=== PATIENT | female | born 1975 | race Caucasian/White ===

== ENCOUNTER 2019-04-10 08:27 | Observation (INO) ==
[2019-04-10] MEDS ORDERED: Ketorolac 15 MG/ML VIAL IVP ONE (08:42)
[2019-04-10] MEDS ORDERED: Ondansetron 4 MG/2 ML VIAL IVP ONE ×2 (08:42→20:55)
--- NOTE | 2019-04-10 08:46 | Emergency Department Note ---
Disposition Clinical Impression: Kidney stone Disposition: Admitted As Inpatient Time of Disposition: 10:21 General Adult HPI - General Chief complaint: ED Back Pain/Injury Stated complaint: kidney stone Time Seen by Provider: 04/10/19 08:29 Source: patient Limitations: no limitations Nursing Notes Reviewed: Yes Vital Signs Reviewed: Yes - History of Present Illness HPI Narrative: 44 year old female presents with the left flank pain. Patient stated it was intermittent left flank pain for 3 days. She complained of worsening pain this morning. Associated with nausea and vomited once. Patient felt cold. No fever. No difficulty urinating. No history of kidney stone. Last bowel movement was yesterday. History of cholecystectomy and appendectomy. Onset (ago): day(s) (3) Location: back, left Radiation: non-radiation Pain Scale: 8 - Related Data Previous Rx's Medication Instructions Recorded Ibuprofen [Motrin] 600 mg PO Q6HR PRN #60 tab 09/20/17 Allergies Allergy/AdvReac Type Severity Reaction Status Date / Time No Known Allergies Allergy Verified 09/20/17 10:59 Constitutional: Reports: chills. Denies: fever Eyes: Denies: eye pain ENT ED: Denies: ear pain Cardiovascular: Denies: chest pain Respiratory: Denies: cough Gastrointestinal: Reports: nausea, vomiting. Denies: abdominal pain Genitourinary: Denies: urgency, dysuria, frequency Musculoskeletal: Reports: back pain Integumentary: Denies: rash Neurological: Denies: headache Psychiatric: Denies: anxiety Endocrine: Denies: fatigue Hematological/Lymphatic: Denies: easy bleeding Allergic/Immunologic: Denies: facial swelling Past Medical History - Past Medical History Medical history: Reports: other Surgical history: Reports: appendectomy, cholecystectomy Psychiatric history: Reports: no psych history - Social History Smoking Status: Current every day smoker Smokeless Tobacco Status: No Alcohol use: Reports: none Drug use: Reports: none Physical Exam - General Limitations: no limitations General appearance: alert - Head Head exam: atraumatic - Eye Eye exam: Present: normal appearance - ENT ENT exam: normal exam - Neck Neck exam: Present: normal inspection - Chest Chest inspection: Present: normal inspection - Respiratory Respiratory exam: Present: normal lung sounds bilaterally - Cardiovascular Cardiovascular exam: Present: regular rate - Abdominal Exam Abdominal exam: Present: soft, Non-Tender - Extremities Exam Extremities exam: Present: normal inspection, full ROM. Absent: tenderness - Back Exam Back exam: Present: normal inspection, CVA tenderness (L) - Neurological Exam Neurological exam: Present: alert, oriented X3 - Psychiatric Psychiatric exam: Present: normal affect, normal mood - Skin Skin exam: Present: warm, intact Course Vital Signs Temperature 97.9 F 04/10/19 08:30 Pulse Rate 91 04/10/19 08:30 Respiratory Rate 18 04/10/19 08:30 Blood Pressure 119/75 04/10/19 08:30 O2 Sat by Pulse Oximetry 97 04/10/19 08:30 Temperature 97.9 F 04/10/19 08:30 Pulse Rate 73 04/10/19 10:54 Respiratory Rate 16 04/10/19 10:54 Blood Pressure 112/68 04/10/19 10:54 O2 Sat by Pulse Oximetry 99 04/10/19 10:54 Oxygen Delivery Oxygen Delivery Room Air Medical Decision Making - MDM Narrative Medical decision making narrative: 44 year old female presents with left flank pain for three days and got worse today. Associate with nausea and vomiting. No chills and fever. Physical exam: Afebrile, nontoxic looking, abdomen soft no tender to palpation, left CVA tender to percussion. Labs are remarkable, abdomen CT indicated a 11.3 cm kidney stone in left renal pelvis. Pt is given one dose of Toradol and Zofran in ER. Spoke with Urologist Dr. John. He suggested to admit pt to medicine with NPO. He will schedule OP for patient. Spoke with Hospitalist Dr. Peña, pt is accepted. Dr. Cleaning has seen the patient and agrees the above plan. - Lab Data Lab results reviewed: Yes I reviewed the patient's lab results. Result diagrams: 04/10/19 08:49 04/10/19 08:49 Lab Results 04/10/19 04/10/19 04/10/19 Range/Units 08:49 08:49 08:49 WBC 11.0 (4.3-11.1) K/mcL RBC 5.33 H (3.82-4.97) M/mcL Hgb 16.1 H (11.5-15.4) g/dL Hct 47.7 H (35.3-44.9) % MCV 89.5 (83.0-100.0) fL MCH 30.2 (28.0-33.3) pg MCHC 33.8 (31.6-35.5) g/dL RDW 13.8 (11.5-14.5) % Plt Count 248 (140-400) K/mcL MPV 10.3 (9.4-12.4) fL Immature Gran % 0.5 (0-4) % Seg Neutrophils % 78.6 % Lymphocytes % 14.7 % Monocytes % 4.2 % Eosinophils % 1.5 % Basophils % 0.5 % Neutrophils # 8.6 (1.6-8.9) K/mcL Lymphocytes # 1.6 (0.6-4.6) K/mcL Monocytes # 0.5 (0.0-1.3) K/mcL Eosinophils # 0.2 (0.0-0.6) K/mcL Basophils # 0.1 (0.0-0.2) K/mcL Sodium 137 (136-145) mEq/L Potassium 4.4 (3.5-5.1) mEq/L Chloride 104 (98-107) mEq/L Carbon Dioxide 24 (23-29) mEq/L BUN 18 (6-20) mg/dL Creatinine 0.74 (0.60-1.20) mg/dL Est GFR ( Amer) > 60 (> 60) Est GFR (Non-Af Amer) > 60 (> 60) BUN/Creatinine Ratio 24 (6-26) Glucose 117 H (70-105) mg/dL Calculated Osmolality 287 (280-300) Lactic Acid (0.5-2.2) mmol/L Calcium 9.7 (8.6-10.3) mg/dL Ur Specimen Adequacy Urine Color (Yellow) Urine Clarity (Clear) Urine pH (5.0-8.0) pH Units Ur Specific [place] (1.010-1.025) Urine Protein (Neg-Trace) mg/dL Urine Glucose (UA) (Normal) mg/dL Urine Ketones (Negative) mg/dL Urine Blood (Negative) Urine Nitrite (Negative) Urine Bilirubin (Negative) Urine Urobilinogen (Normal) mg/dL Ur Leukocyte Esterase (Negative) Urine Microscopic RBC (0-3) per hpf Urine Microscopic WBC (0-3) per hpf Ur Squamous Epith Cells (None-Few) per lpf Urine Bacteria (None-Few) per hpf Hyaline Casts (None-Few) per lpf Urine Mucus (Few) Ur Culture Indicated? (NO) Specimen Rejected Hemolyzed 04/10/19 04/10/19 Range/Units 08:53 09:36 WBC (4.3-11.1) K/mcL RBC (3.82-4.97) M/mcL Hgb (11.5-15.4) g/dL Hct (35.3-44.9) % MCV (83.0-100.0) fL MCH (28.0-33.3) pg MCHC (31.6-35.5) g/dL RDW (11.5-14.5) % Plt Count (140-400) K/mcL MPV (9.4-12.4) fL Immature Gran % (0-4) % Seg Neutrophils % % Lymphocytes % % Monocytes % % Eosinophils % % Basophils % % Neutrophils # (1.6-8.9) K/mcL Lymphocytes # (0.6-4.6) K/mcL Monocytes # (0.0-1.3) K/mcL Eosinophils # (0.0-0.6) K/mcL Basophils # (0.0-0.2) K/mcL Sodium (136-145) mEq/L Potassium (3.5-5.1) mEq/L Chloride (98-107) mEq/L Carbon Dioxide (23-29) mEq/L BUN (6-20) mg/dL Creatinine (0.60-1.20) mg/dL Est GFR ( Amer) (> 60) Est GFR (Non-Af Amer) (> 60) BUN/Creatinine Ratio (6-26) Glucose (70-105) mg/dL Calculated Osmolality (280-300) Lactic Acid 0.4 L (0.5-2.2) mmol/L Calcium (8.6-10.3) mg/dL Ur Specimen Adequacy See below A Urine Color Yellow (Yellow) Urine Clarity Clear (Clear) Urine pH 5.5 (5.0-8.0) pH Units Ur Specific [place] 1.029 H (1.010-1.025) Urine Protein 100 H (Neg-Trace) mg/dL Urine Glucose (UA) Normal (Normal) mg/dL Urine Ketones Negative (Negative) mg/dL Urine Blood Large H (Negative) Urine Nitrite Negative (Negative) Urine Bilirubin Negative (Negative) Urine Urobilinogen Normal (Normal) mg/dL Ur Leukocyte Esterase Negative (Negative) Urine Microscopic RBC 50-100 H (0-3) per hpf Urine Microscopic WBC 5-15 H (0-3) per hpf Ur Squamous Epith Cells Many H (None-Few) per lpf Urine Bacteria Few (None-Few) per hpf Hyaline Casts None Seen (None-Few) per lpf Urine Mucus Few (Few) Ur Culture Indicated? YES A (NO) Specimen Rejected - Radiology Data Radiology results reviewed: Yes I reviewed the patient's radiology results. HISTORY: ORDERING SYSTEM PROVIDED HISTORY: left flank pain FINDINGS: Lower Chest: Lung bases clear Organs: 1.3 x 1.0 cm stone in the left renal pelvis. No hydronephrosis. Stranding of the peripelvic fat. No ureteral stone or hydroureter. Remaining solid organs have an unremarkable noncontrast appearance. Gallbladder surgically absent GI/Bowel: No gastrointestinal abnormality demonstrated. Appendix surgically absent Pelvis: Reproductive organs within normal limits. T-shaped IUD appears in good position. Urinary bladder unremarkable Peritoneum/Retroperitoneum: Aorta unremarkable. No ascites or pneumoperitoneum Bones/Soft Tissues: No acute bony abnormality. Degenerative disc disease L5-S1 CT/CT abd pelvis wo no iv no oral IMPRESSION: 1.3 x 1.0 cm nonobstructing stone in the left renal pelvis. The presence of peripelvic fat stranding may indicate the presence of pyelitis D/ / Hernandez Capps MD / Hernandez Capps MD Interpreting Provider: Hernandez Capps MD
[2019-04-10 09:02] LABS: Basophils # 0.1 K/mcL (0.0-0.2); Basophils % 0.5 %; Eosinophils # 0.2 K/mcL (0.0-0.6); Eosinophils % 1.5 %; Hematocrit 47.7 % (35.3-44.9); Hemoglobin 16.1 g/dL (11.5-15.4); Immature Granulocytes % 0.5 % (0-4); Lymphocytes # 1.6 K/mcL (0.6-4.6); Lymphocytes % 14.7 %; Mean Corpuscular HGB Conc 33.8 g/dL (31.6-35.5); Mean Corpuscular Hemoglobin 30.2 pg (28.0-33.3); Mean Corpuscular Volume 89.5 fL (83.0-100.0); Mean Platelet Volume 10.3 fL (9.4-12.4); Monocytes # 0.5 K/mcL (0.0-1.3); Monocytes % 4.2 %; Neutrophils # 8.6 K/mcL (1.6-8.9); Platelet Count 248 K/mcL (140-400); Red Blood Count 5.33 M/mcL (3.82-4.97); Red Cell Distribution Width 13.8 % (11.5-14.5); Segmented Neutrophils % 78.6 %
[2019-04-10 09:04] LABS: Bilirubin,Urine Negative (Negative); Blood,Urine Large (Negative); Clarity,Urine Clear (Clear); Color,Urine Yellow (Yellow); Glucose,Urine (UA) Normal (Normal); Ketones,Urine Negative (Negative); Specific Gravity,Urine 1.029 (1.010-1.025)
[2019-04-10 09:05] LABS: Leukocyte Esterase,Urine Negative (Negative); Nitrite,Urine Negative (Negative); PH,Urine 5.5 pH Units (5.0-8.0); Protein,Urine 100 mg/dL (Neg-Trace); Urobilinogen,Urine Normal (Normal)
[2019-04-10 09:06] LABS: Bacteria,Urine Few per hpf (None-Few); Hyaline Casts,Urine None Seen per lpf (None-Few); Squamous Epithelial Cell,Urine Many per lpf (None-Few)
[2019-04-10 09:19] LABS: Mucus,Urine Few (Few); RBC,Urine 50-100 per hpf (0-3)
[2019-04-10 09:21] LABS: BUN/Creatinine Ratio 24 (6-26); Blood Urea Nitrogen 18 mg/dL (6-20); Calcium 9.7 mg/dL (8.6-10.3); Carbon Dioxide 24 mEq/L (23-29); Chloride 104 mEq/L (98-107); Glucose 117 mg/dL (70-105); Osmolality,Calculated 287 (280-300); Potassium 4.4 mEq/L (3.5-5.1); Sodium 137 mEq/L (136-145); eGFR For African Americans > 60 (> 60); eGFR For Non-African Americans > 60 (> 60)
[2019-04-10] MEDS ORDERED: Ketorolac 15 MG/ML VIAL IVP PRN (10:37)
[2019-04-10] MEDS ORDERED: Naloxone 0.4 MG/ML INJ IVP PRN (10:37)
--- NOTE | 2019-04-10 10:37 | Internal Med History&Physical ---
Date of Encounter: 04/10/19 Time of Encounter: 10:47 Internal Medicine - H&P: HPI History of present illness: Ms. Carbajal is a 44 year old female with no known past medical history presents for worsening left flank pain. Patient states she has had off and on left flank pain for past several weeks but this morning became a 10/10 in severity and was intolerable. Pain was non-radiating, sharp, with no alleviating or exacerbating factors. Urine color as of a few days ago is more dark. She complained of chills but no fever, no dysuria. In the ED a CT abdomen/pelvis showed 1.3 x1.0 cm nonobstructing stone in left renal pelvis with peripelvic fat stranding possibly from pyelitis. Urinalysis showed mostly hematuria, squamous epithelial cells and WBCs, negative for nitrites and leukocyte esterase. She was given a dose of Toradol and Zofran. Patient currently has no complaints. Past Med Surg Social Fam HX - Past Medical History Medical history: other Additional medical history: obesity, hemorrhoids. SMOKER Psychiatric history: no psych history - Past Surgical History Surgical History: appendectomy, cholecystectomy Additional surgical history: tonsillectomy - Social History Smoking Status: Current every day smoker Smokeless Tobacco Status: No Alcohol use: none Drug use: none Internal Medicine - H&P: Meds Ibuprofen [Motrin] 600 mg PO Q6HR PRN #60 tab 09/20/17 [Rx] Allergy/AdvReac Type Severity Reaction Status Date / Time No Known Allergies Allergy Verified 09/20/17 10:59 All Systems PM: A 10-system review of systems was performed and is negative for pertinent findings except as documented above in the HPI. - Constitutional Constitutional: chills, no fever(s), no night sweats - EENT Eyes: no change in vision, no discharge, no pain, no photophobia Ears: no ear discharge, no ear pain, no tinnitus Nose, mouth and throat: no dysphagia, no nasal discharge, no neck pain, no sore throat - Cardiovascular Cardiovascular ROS IM: no chest pain, no diaphoresis, no dyspnea, no lightheadedness, no palpitations, no syncope - Respiratory Respiratory: no cough, no dyspnea, no wheezing, no excessive phlegm production - Gastrointestinal Gastrointestinal: nausea, no abdominal pain, no diarrhea, no hematemesis, no hematochezia, no melena - Genitourinary Genitourinary: flank pain (left sided), no change in urinary stream, no difficulty urinating, no dysuria, no hematuria, no vaginal odor Additional comments: dark colored urine. - Musculoskeletal Musculoskeletal ROS IM: no numbness, no tingling - Integumentary Integumentary IM: no rash, no unusual bruising - Neurological Neurological ROS: no confusion, no convulsions, no focal weakness, no numbness, no tingling, no tremor(s) - Hematologic/Lymphatic Hematologic/Lymphatic: no easy bruising - Constitutional Vitals: Temp Pulse Resp BP Pulse Ox 97.9 F 70 17 103/61 97 04/10/19 08:30 04/10/19 09:55 04/10/19 09:55 04/10/19 09:55 04/10/19 09:55 General appearance: Present: A&O X 3, no acute distress Exam: . - Head Head exam: Present: atraumatic, normocephalic - Eye Eye exam: Present: PERRL, conjuntiva pink, sclera anicteric Pupils: Present: PERRL - Neck Neck exam general surgery: Present: supple, trachea midline. Absent: lymphadenopathy - Respiratory Respiratory exam: Present: CTAB. Absent: accessory muscle use, rales, rhonchi, wheezes - Cardiovascular Cardiovascular exam: Present: RRR, +S1, +S2. Absent: diastolic murmur, gallop, rubs, systolic murmur - GI/Abdominal GI/Abdominal exam: Present: normal bowel sounds, soft, no peritoneal signs. Absent: distended, tenderness - Additional comments: left flank tenderness - Extremities Exam Extremities exam: Present: warm, radial pulses palpable and symmetrical. Absent: calf tenderness, cyanotic, pedal edema - Back Exam Back exam: Present: CVA tenderness (L) - Neurological Exam Neurological exam: Present: CN II-XII intact, oriented X3, no focal deficits. Absent: pronater drift, facial droop, speech deficit - Skin Skin exam: Present: dry, intact Internal Med - H&P Results - Labs CBC & Chem 7: 04/10/19 08:49 04/10/19 08:49 Labs: Short CBC 04/10/19 Range/Units 08:49 WBC 11.0 (4.3-11.1) K/mcL Hgb 16.1 H (11.5-15.4) g/dL Hct 47.7 H (35.3-44.9) % Plt Count 248 (140-400) K/mcL Neutrophils # 8.6 (1.6-8.9) K/mcL BMP 04/10/19 08:49 Sodium 137 Potassium 4.4 Chloride 104 Carbon Dioxide 24 BUN 18 Creatinine 0.74 Glucose 117 H Calcium 9.7 Urine 04/10/19 Range/Units 08:53 Urine Color Yellow (Yellow) Urine Clarity Clear (Clear) Urine pH 5.5 (5.0-8.0) pH Units Ur Specific [place] 1.029 H (1.010-1.025) Urine Protein 100 H (Neg-Trace) mg/dL Urine Glucose (UA) Normal (Normal) mg/dL - Impressions ITS Impressions Abdomen/Pelvis CT 04/10/19 08:43 IMPRESSION: 1.3 x 1.0 cm nonobstructing stone in the left renal pelvis. The presence of peripelvic fat stranding may indicate the presence of pyelitis D/ / Hernandez Capps MD / Hernandez Capps MD Interpreting Provider: Hernandez Capps MD - Assessment and Plan (1) Left nephrolithiasis Current Visit: Yes Status: Acute Assessment and plan: Seen on CT abdomen/pelvis measuring 1.3 x 1.0 cm in left renal pelvis. No hydronephrosis or signs of renal failure. - Start bolus normal saline. - NPO for Urology evaluation. - Symptomatic treatment for pain and nausea - Urine culture obtained after urinalysis, start emperic Rocephin for now. (2) DVT prophylaxis Current Visit: Yes Status: Acute Assessment and plan: heparin SQ - Time Spent With Patient Total time spent is greater than 50% in coordination of care (as documented) at patient's floor/unit and/or counseling patient:
[2019-04-10] MEDS ORDERED: 0.9 % Sodium Chloride 1,000 ML IVC SCH (10:45)
[2019-04-10] MEDS ORDERED: 0.9 % Sodium Chloride 1,000 ML IVC ONE (10:46)
[2019-04-10] MEDS ORDERED: Ondansetron 4 MG/2 ML VIAL IVP PRN (10:56)
[2019-04-10] MEDS: cefTRIAXone 1,000 MG in Water for inj. (sterile) 10 ML IVP SCH (11:05)
[2019-04-10] MEDS: Nicotine 14 MG PATCH.TD24 TD SCH (12:52)
--- NOTE | 2019-04-10 13:27 | Urology - Consult Note ---
<Kyra Patel N - Last Filed: 04/10/19 13:24> Date of Encounter: 04/10/19 Time of Encounter: 10:30 - Assessment and Plan (1) Kidney stone Current Visit: Yes Status: Acute Assessment and plan: Patient is a 44-year-old female who presents with a 1 cm left renal pelvis stone. CT does not suggest any sign of obstruction, however, the location of the stone is just proximal to the left UPJ. This stone may be creating a ball valve effect intermittently blocking the left kidney, therefore causing pain. We discussed surgical risks and benefits, and patient verbalized understanding. Patient will remain nothing by mouth, and she has signed a surgical consent. Patient is prepared undergo a cystoscopy, left ureteral stent placement and left retrograde pyelogram later this evening with Dr. John. Patient is aware she will require a staged stone extraction procedures secondary to the size and location of her stone. Urology CN:HPI Consult date: 04/10/19 Reason for consult Urology: Other (left renal stone) Requesting physician: Anam Au History of present illness: Patient is a 44-year-old female who presents with a history of left flank pain and a 1.0 x 1.3 cm left renal pelvis stone. Patient admits to ongoing, intermittent left flank pain over the last 2-3 weeks. She states this pain a cutely worsened overnight, and she presented to the emergency department where she underwent a CT of the abdomen and pelvis revealing a 1.0 x 1.3 cm left renal pelvis stone without hydronephrosis. Patient states this is the first renal stone she has experienced. She denies any known family history of renal stones. Patient reports she is voiding well without difficulty, and she denies any dysuria, gross hematuria, frequency, urgency or incontinence. Patient admits to nausea and vomiting that accompanies the pain. Currently, patient is sitting upright in bed in no apparent distress. Past Med Surg Social Fam HX - Past Medical History Medical history: other Additional medical history: obesity, hemorrhoids. SMOKER Psychiatric history: no psych history - Past Surgical History Surgical History: appendectomy, cholecystectomy Additional surgical history: tonsillectomy - Social History Smoking Status: Current every day smoker Smokeless Tobacco Status: No Alcohol use: none Drug use: none - Additional Family History Additional family history: No known documented family history of renal stones. Medications and Allergies Ibuprofen [Motrin] 600 mg PO Q6HR PRN #60 tab 09/20/17 [Rx] Allergy/AdvReac Type Severity Reaction Status Date / Time No Known Allergies Allergy Verified 09/20/17 10:59 Review of Systems - Constitutional no chills, no fatigue, no fever(s) - EENT Nose, mouth and throat: no dizziness, no headache(s) - Cardiovascular no chest pain, no diaphoresis, no dyspnea - Respiratory no cough, no dyspnea - Gastrointestinal abdominal pain, nausea, vomiting - Genitourinary Genitourinary: flank pain, no difficulty urinating, no dysuria, no hematuria, no urinary frequency, no urinary hesitancy, no urinary incontinence, no urinary urgency - Musculoskeletal back pain, no muscle weakness - Integumentary no erythema, no rash - Neurological no confusion, no syncope - Psychiatric no anxiety, no confusion - Hematologic/Lymphatic no easy bleeding, no easy bruising - Allergic/Immunologic no throat swelling, no wheezing Exam Initial Vital Signs Temp Pulse Resp BP Pulse Ox 97.9 F 91 18 119/75 97 04/10/19 08:30 04/10/19 08:30 04/10/19 08:30 04/10/19 08:30 04/10/19 08:30 - General physical appearance Present: no distress, no pain - Eyes Present: PERRL, normal ocular movement - ENT Present: normal nares, no hearing loss, no congestion - Neck Present: no masses, trachea midline, no lymphadenopathy - Respiratory Present: normal respiratory effort - Cardiovascular Cardiovascular exam IM: RRR - Abdomen Abdomen: Present: soft, non tender. Absent: distended - Genitourinary Present: other (No CVAT) - Integumentary Present: no rash, no abnormal pigmentation - Neurologic Present: normal coordination - Musculoskeletal Present: other (Normal posture) Urology Results - Labs 04/10/19 08:49 04/10/19 08:49 Abnormal lab results RBC 5.33 M/mcL (3.82-4.97) H 04/10/19 08:49 Hgb 16.1 g/dL (11.5-15.4) H 04/10/19 08:49 Hct 47.7 % (35.3-44.9) H 04/10/19 08:49 Glucose 117 mg/dL (70-105) H 04/10/19 08:49 Lactic Acid 0.4 mmol/L (0.5-2.2) L 04/10/19 09:36 Ur Specimen Adequacy See below A 04/10/19 08:53 Ur Specific [place] 1.029 (1.010-1.025) H 04/10/19 08:53 Urine Protein 100 mg/dL (Neg-Trace) H 04/10/19 08:53 Urine Blood Large (Negative) H 04/10/19 08:53 Urine Microscopic RBC 50-100 per hpf (0-3) H 04/10/19 08:53 Urine Microscopic WBC 5-15 per hpf (0-3) H 04/10/19 08:53 Ur Squamous Epith Cells Many per lpf (None-Few) H 04/10/19 08:53 Ur Culture Indicated? YES (NO) A 04/10/19 08:53 Diabetes panel 04/10/19 Range/Units 08:49 Sodium 137 (136-145) mEq/L Potassium 4.4 (3.5-5.1) mEq/L Chloride 104 (98-107) mEq/L Carbon Dioxide 24 (23-29) mEq/L BUN 18 (6-20) mg/dL Creatinine 0.74 (0.60-1.20) mg/dL Glucose 117 H (70-105) mg/dL Calcium 9.7 (8.6-10.3) mg/dL Calcium panel 04/10/19 Range/Units 08:49 Calcium 9.7 (8.6-10.3) mg/dL Pituitary panel 04/10/19 Range/Units 08:49 Sodium 137 (136-145) mEq/L Potassium 4.4 (3.5-5.1) mEq/L Chloride 104 (98-107) mEq/L Carbon Dioxide 24 (23-29) mEq/L BUN 18 (6-20) mg/dL Creatinine 0.74 (0.60-1.20) mg/dL Glucose 117 H (70-105) mg/dL Calcium 9.7 (8.6-10.3) mg/dL Adrenal panel 04/10/19 Range/Units 08:49 Sodium 137 (136-145) mEq/L Potassium 4.4 (3.5-5.1) mEq/L Chloride 104 (98-107) mEq/L Carbon Dioxide 24 (23-29) mEq/L BUN 18 (6-20) mg/dL Creatinine 0.74 (0.60-1.20) mg/dL Glucose 117 H (70-105) mg/dL Calcium 9.7 (8.6-10.3) mg/dL All other labs normal. - Imaging CT scan - abdomen: report reviewed, image reviewed CT scan - pelvis: image reviewed Consult Discharge Plan - Plan Referrals: Amrik Echeverria Jr, MD [Primary Care Provider] - <Ishan John W - Last Filed: 04/10/19 21:39> Date of Encounter: 04/10/19 - Assessment and Plan (1) Left nephrolithiasis Current Visit: Yes Status: Acute Assessment and plan: Patient seen and examined independently. History, review of systems and physical exam findings of PA verified. All pertinent imaging reviewed. I am in agreement with the assessment and plan as outlined by our Urologic Surgery Department Physician Induction Heat Treater, Jorge. Discussed findings with patient and options for management. Plan: Urgent urinary diversion for pain control as well as possible UTI in setting of an early obstructing large left renal pelvic calculus. (2) Flank pain Current Visit: Yes Status: Acute Assessment and plan: Admitted flank pain 1 week. Imaging reveals a 1.5 cm left renal pelvic calculus. Discussed staged approach with urgent urinary diversion today followed by definitive surgical address in 1-2 weeks once infection cleared. Plan: Urgent stent placement in office today due to intractable pain. Okay to discharge home post stent placement. Please discharged home on culture specific antibiotic. My office will arrange for outpatient follow-up to discuss definitive surgical address of left renal calculus (3) UTI (urinary tract infection) Current Visit: Yes Status: Acute Assessment and plan: Patient reports intermittent chills but no fevers. Afebrile. No thickened w sarai count. CT suggests inflammation around the left kidney with questionable pyelitis. Culture is pending. Plan: Urgent urinary diversion with stent placement. Home on culture specific antibiotics. Qualifiers: Urinary tract infection type: site unspecified Hematuria presence: without hematuria Qualified Code(s): N39.0 - Urinary tract infection, site not specified Exam Initial Vital Signs Temp Pulse Resp BP Pulse Ox 97.9 F 91 18 119/75 97 04/10/19 08:30 04/10/19 08:30 04/10/19 08:30 04/10/19 08:30 04/10/19 08:30 Urology Results - Labs 04/10/19 08:49 04/10/19 08:49 Abnormal lab results RBC 5.33 M/mcL (3.82-4.97) H 04/10/19 08:49 Hgb 16.1 g/dL (11.5-15.4) H 04/10/19 08:49 Hct 47.7 % (35.3-44.9) H 04/10/19 08:49 Glucose 117 mg/dL (70-105) H 04/10/19 08:49 Lactic Acid 0.4 mmol/L (0.5-2.2) L 04/10/19 09:36 Ur Specimen Adequacy See below A 04/10/19 08:53 Ur Specific [place] 1.029 (1.010-1.025) H 04/10/19 08:53 Urine Protein 100 mg/dL (Neg-Trace) H 04/10/19 08:53 Urine Blood Large (Negative) H 04/10/19 08:53 Urine Microscopic RBC 50-100 per hpf (0-3) H 04/10/19 08:53 Urine Microscopic WBC 5-15 per hpf (0-3) H 04/10/19 08:53 Ur Squamous Epith Cells Many per lpf (None-Few) H 04/10/19 08:53 Ur Culture Indicated? YES (NO) A 04/10/19 08:53 Diabetes panel 04/10/19 Range/Units 08:49 Sodium 137 (136-145) mEq/L Potassium 4.4 (3.5-5.1) mEq/L Chloride 104 (98-107) mEq/L Carbon Dioxide 24 (23-29) mEq/L BUN 18 (6-20) mg/dL Creatinine 0.74 (0.60-1.20) mg/dL Glucose 117 H (70-105) mg/dL Calcium 9.7 (8.6-10.3) mg/dL Calcium panel 04/10/19 Range/Units 08:49 Calcium 9.7 (8.6-10.3) mg/dL Pituitary panel 04/10/19 Range/Units 08:49 Sodium 137 (136-145) mEq/L Potassium 4.4 (3.5-5.1) mEq/L Chloride 104 (98-107) mEq/L Carbon Dioxide 24 (23-29) mEq/L BUN 18 (6-20) mg/dL Creatinine 0.74 (0.60-1.20) mg/dL Glucose 117 H (70-105) mg/dL Calcium 9.7 (8.6-10.3) mg/dL Adrenal panel 04/10/19 Range/Units 08:49 Sodium 137 (136-145) mEq/L Potassium 4.4 (3.5-5.1) mEq/L Chloride 104 (98-107) mEq/L Carbon Dioxide 24 (23-29) mEq/L BUN 18 (6-20) mg/dL Creatinine 0.74 (0.60-1.20) mg/dL Glucose 117 H (70-105) mg/dL Calcium 9.7 (8.6-10.3) mg/dL All other labs normal.
[2019-04-10] MEDS ORDERED: *HR* Heparin 5,000 UNIT/ML VIAL SQ SCH (18:00)
--- NOTE | 2019-04-10 19:34 | Anesthesia Evaluation PreOp ---
Date of Encounter: 04/10/19 Time of Encounter: 19:32 - Past History Planned Operation: Cystoscopy Cardiac History: Denies any Significant Hx Pulmonary History: Smoker Anesthesia History: No Prior Anesthetic Complications, Past Anesthesia (appy, maxx, tonsils, hysteroscopy) : No Test: Negative (04/10/19) Alcohol Use: none Drug use: none Medications and Allergies Ibuprofen [Motrin] 600 mg PO Q6HR PRN #60 tab 09/20/17 [Rx] Allergy/AdvReac Type Severity Reaction Status Date / Time No Known Allergies Allergy Verified 09/20/17 10:59 - Meds/Allergy Pre-op Review Medications Reviewed: Yes Allergies Reviewed: Yes Beta Blockers on Current Med List: No Anesthesia Results - Labs 04/10/19 08:49 04/10/19 08:49 Laboratory Tests 04/10/19 08:53 Urine Test Negative Anesthesia Exam O2 Sat Height 1.55 m Weight 88.451 kg O2 Sat by Pulse Oximetry 97 O2 Sat by Pulse Oximetry 97 O2 Sat by Pulse Oximetry 95 O2 Sat by Pulse Oximetry 99 O2 Sat by Pulse Oximetry 99 O2 Sat by Pulse Oximetry 97 O2 Sat by Pulse Oximetry 100 O2 Sat by Pulse Oximetry 97 Vital Signs Temp Pulse Resp BP Pulse Ox 97.9 F 91 18 119/75 97 04/10/19 08:30 04/10/19 08:30 04/10/19 08:30 04/10/19 08:30 04/10/19 08:30 NPO (# of Hours): > 8 hrs Pain Scale: 0 Pain Scale Used: Numeric (1 - 10) - HEENT Pupil (Motor): Pupils equal, EOMI Mallampati: II Teeth: Normal Oral Opening: Greater than 3 - BALANCE RECESSER LOC: Oriented BALANCE RECESSER Motor: Normal RUE, Normal LUE, Normal RLE, Normal LLE, Normal Face BALANCE RECESSER Sensory: Normal: RUE, LUE, RLE, LLE, Face - Cardiac Rhythm: Regular Murmur: None JVD: No Carotid Bruit: No - Pulmonary Breath Sounds: bilateral Clear Respiratory Effort: Symmetrical Anesthesia Assess/Plan ASA Score: 2 Level of consciousness: Cooperative Anesthetic Plan: General Autologous Blood: Yes Monitoring Plan: Standard Monitors Recovery Plan: PACU
[2019-04-10] MEDS ORDERED: *HR* FentaNYL (PF) 100 MCG/2 ML VIAL ONE (20:12)
[2019-04-10] MEDS ORDERED: *HR* Propofol 200 MG/20 ML VIAL IVP ONE (20:12)
[2019-04-10] MEDS ORDERED: *HR* Promethazine 25 MG/ML VIAL IVP PRN (20:55)
[2019-04-10] MEDS ORDERED: *HR* HYDROmorphone (PF) 1 MG/ML SYRINGE IVP PRN (20:55)
[2019-04-10] MEDS ORDERED: *HR* OxyCODONE Immed Rel 5 MG TABLET PO PRN (20:55)
[2019-04-10] MEDS ORDERED: Clindamycin 600 MG/50 ML 600 MG/50 ML IV.SOLN IVPB ONE (21:12)
[2019-04-10] MEDS ORDERED: Isovue-300 50 ML VIAL ONE (21:12)
--- NOTE | 2019-04-10 21:42 | Operative Note ---
Date of procedure: 04/10/19 Pre-op diagnosis: Left renal pelvic calculus Post-op diagnosis: same Procedure: DOS 3, left retrograde ureteral pyelography with intraoperative interpretation of radiographic images in real time by surgeon to facilitate procedure, left double-J stent placement. Implants: 6 x 24 left double-J stent Complications: No complications Anesthesia: GETA Surgeon: Ishan John Was there an department assistant present: No Estimated blood loss (cc): 0 Specimen: None Condition: stable Disposition: PACU Procedure in Detail: The patient brought the operating theater placed on table supine position. This ended 5 by name and straight general anesthetic. The patient placed in dorsal lithotomy prepped and draped in normal sterile fashion. The cystoscope was inserted to the urethral meatus and advanced into the bladder. There were no gross abnormalities. An open-ended catheter was placed the tip of the left ureteral orifice and with gentle injection of contrast a left retrograde ureteropyelogram was performed. Intraoperative interpretation of radiographic images in real time by surgeon revealed normal distal mid and proximal ureter. With in the renal pelvis was a large filling defect consistent with stone seen on CT. Based upon this real time interpretation of images and patient clinical history, urinary diversion with stent placement was indicated. The Glidewire was advanced under fluoroscopy into the upper pole of the left kidney. Over the Glidewire a 6 x 24 left double-J stent was advanced. Once the stent was felt in good position the Glidewire was removed. Fluoroscopy confirmed good position of proximal and distal stent curls. This ended the operative procedure.
--- NOTE | 2019-04-10 22:00 | Anesthesia Evaluation Post Op ---
Date of Encounter: 04/10/19 Time of Encounter: 21:59 - Vital Signs Vital Signs: Vital Signs/O2 Sat, Most Current Temp Pulse Resp BP Pulse Ox 98.4 F 73 17 102/57 96 04/10/19 21:36 04/10/19 21:56 04/10/19 21:56 04/10/19 21:56 04/10/19 21:56 - Lungs Lungs: Clear Ascult./Percussion - Airway Airway: Non-obstructed - Cardiovascular Regular Rate - Mental Status Mental Status: Alert & Oriented, Answers Appropriately - Pain Pain Scale: 1 Pain Scale used: Numeric (1 - 10) - Nausea Vomiting Nausea Vomiting: Not Present - Hydration Hydration: Ice chips, Has not voided - Discharge PostOp Status: Transfer Patient to floor
[2019-04-11] MEDS: Nicotine 14 MG PATCH.TD24 TD SCH (08:41)
[2019-04-11] MEDS: cefTRIAXone 1,000 MG in Water for inj. (sterile) 10 ML IVP SCH (08:41)
--- NOTE | 2019-04-11 08:43 | Urology Progress Note ---
Date of Encounter: 04/11/19 Time of Encounter: 08:15 - Assessment and Plan (1) Kidney stone Current Visit: Yes Status: Acute Assessment and plan: Patient is a 44-year-old female who presents one day status post cystoscopy, left retrograde ureteral pyelography with intraoperative interpretation of radiographic images in real time by surgeon to facilitate procedure, left double-J stent placement. Patient is recovering very well postoperatively. We discussed postoperative expectations with indwelling ureteral stent. Patient is aware she will need to follow-up with Dr. John within 1-2 weeks of discharge for stent removal. Progress Note Subjective: no new complaints Narrative: POD #1. Patient seen and examined sitting upright in bed in no apparent dist ress. Patient is tolerating normal diet without nausea or vomiting. Patient is voiding well without difficulty. Patient denies any fever, chills or flank pain. Objective Initial Vital Signs Temp Pulse Resp BP Pulse Ox 97.9 F 91 18 119/75 97 04/10/19 08:30 04/10/19 08:30 04/10/19 08:30 04/10/19 08:30 04/10/19 08:30 - General physical appearance Present: well developed, no distress, no pain - Respiratory Present: normal expansion, normal respiratory effort - Abdomen Present: soft, non tender. Absent: distended - Integumentary Present: no rash, no abnormal pigmentation - Musculoskeletal Present: normal posture - Psychiatric Present: oriented to time, oriented to person, oriented to place, speech is normal, memory intact - Labs 04/10/19 08:49 04/10/19 08:49 Diabetes panel 04/10/19 Range/Units 08:49 Sodium 137 (136-145) mEq/L Potassium 4.4 (3.5-5.1) mEq/L Chloride 104 (98-107) mEq/L Carbon Dioxide 24 (23-29) mEq/L BUN 18 (6-20) mg/dL Creatinine 0.74 (0.60-1.20) mg/dL Glucose 117 H (70-105) mg/dL Calcium 9.7 (8.6-10.3) mg/dL Calcium panel 04/10/19 Range/Units 08:49 Calcium 9.7 (8.6-10.3) mg/dL Pituitary panel 04/10/19 Range/Units 08:49 Sodium 137 (136-145) mEq/L Potassium 4.4 (3.5-5.1) mEq/L Chloride 104 (98-107) mEq/L Carbon Dioxide 24 (23-29) mEq/L BUN 18 (6-20) mg/dL Creatinine 0.74 (0.60-1.20) mg/dL Glucose 117 H (70-105) mg/dL Calcium 9.7 (8.6-10.3) mg/dL Adrenal panel 04/10/19 Range/Units 08:49 Sodium 137 (136-145) mEq/L Potassium 4.4 (3.5-5.1) mEq/L Chloride 104 (98-107) mEq/L Carbon Dioxide 24 (23-29) mEq/L BUN 18 (6-20) mg/dL Creatinine 0.74 (0.60-1.20) mg/dL Glucose 117 H (70-105) mg/dL Calcium 9.7 (8.6-10.3) mg/dL Consult Discharge Plan - Plan Referrals: Amrik Echeverria Jr, MD [Primary Care Provider] -
--- NOTE | 2019-04-11 09:57 | Discharge Summary ---
Date of Encounter: 04/11/19 Time of Encounter: 09:00 - Discharge Diagnosis (1) Left nephrolithiasis Priority: Primary Status: Acute Assessment and Plan: 4 year old female with no known past medical history presents for worsening left flank pain. Patient states she has had off and on left flank pain for past several weeks but this morning became a 10/10 in severity and was intolerable. Pain was non-radiating, sharp, with no alleviating or exacerbating factors. Urine color as of a few days ago is more dark. She complained of chills but no fever, no dysuria. In the ED a CT abdomen/pelvis showed 1.3 x1.0 cm nonobstructing stone in left renal pelvis with peripelvic fat stranding possibly from pyelitis. Urinalysis showed mostly hematuria, squamous epithelial cells and WBCs, negative for nitrites and leukocyte esterase. She was given a dose of Toradol and Zofran She was assessed with a left sided kidney stone and underwent a cystoscopy and stent placement. Tolerated procedure well with no acute complications. Will follow up outpatient with urology for stent removal. Discharged in a stable condition (2) DVT prophylaxis Priority: Primary Status: Acute Hospital course: Ms. Carbajal is a 44 year old female - Time Spent with Patient Total time spent providing and/or coordinating discharge services: - Discharge Medications Prescriptions: Continued Ibuprofen [Motrin] 600 mg PO Q6HR PRN #60 tab PRN Reason: Pain Home Medications: Ibuprofen [Motrin] 600 mg PO Q6HR PRN #60 tab 04/11/19 [Rx] Allergies/Adverse Reactions: Allergy/AdvReac Type Severity Reaction Status Date / Time No Known Allergies Allergy Verified 09/20/17 10:59 Date of admission: 04/10/19 10:45 Primary care physician: Amrik Echeverria Jr, MD Consults: 04/10/19 10:23 Consult to Urology [CONS] Stat Consulting Provider: [facility] Reason for Consult: big kidney stone Call Completed: Yes - Constitutional Vitals: Temp Pulse Resp BP Pulse Ox 98.1 F 81 15 100/67 96 04/11/19 06:59 04/11/19 06:59 04/11/19 04:03 04/11/19 06:59 04/11/19 06:59 General appearance: Present: A&O X 3, no acute distress Exam: NAD - Head Head exam: Present: atraumatic, normocephalic - Eye Eye exam: Present: PERRL, conjuntiva pink, sclera anicteric Pupils: Present: PERRL - Neck Neck exam general surgery: Present: supple, trachea midline. Absent: lymphadenopathy - Respiratory Respiratory exam: Present: CTAB. Absent: accessory muscle use, rales, rhonchi, wheezes - Cardiovascular Cardiovascular exam: Present: RRR, +S1, +S2. Absent: diastolic murmur, gallop, rubs, systolic murmur - GI/Abdominal GI/Abdominal exam: Present: normal bowel sounds, soft, no peritoneal signs. Absent: distended, tenderness - Extremities Exam Extremities exam: Present: warm, radial pulses palpable and symmetrical. Absent: calf tenderness, cyanotic, pedal edema - Neurological Exam Neurological exam: Present: CN II-XII intact, oriented X3, no focal deficits. Absent: pronater drift, facial droop, speech deficit - Skin Skin exam: Present: dry, intact - Patient Status Disposition: Home, Self-Care Condition: Good - Discharge Instructions Follow Up With: Amrik Echeverria Jr, MD [Primary Care Provider] - Additional Instructions: Follow-up appointments: If there is not an appointment listed below, please call your physician and schedule a follow-up appointment. If you have congestive heart failure and your symptoms return, make an appointment with your physician. Medication List: Carry an up to date list of medications you are taking at all time. We have given you an updated medication list including any new medications that you have been prescribed. Please provide that list to your primary provider Symptoms: If your condition changes or you experience any of the following symptoms, notify your physician immediately: Unusual or worsening pain, fever, persistent nausea and vomiting, bleeding, increase in swelling (especially in your legs), sudden weight gain, extreme dizziness, chest pain, increased drainage or redness from a wound or incision. Go to the emergency department if you experience a problem with breathing. Weights: If you have a history of swelling or shortness of breath, weigh yourself daily and notify your physician if you have a weight gain of two or more pounds in one day or 5 or more pounds in a week. If you experience any of the warning signs for stroke: Sudden numbness or weakness of the face, arm or leg; especially on one side of the body, sudden confusion, trouble speaking or understanding, sudden trouble seeing in one or both eyes, sudden trouble walking, dizziness, loss of balance or coordination, sudden sever headache with no cause; Call 911 or go to the emergency room. Stroke is a medical emergency. Some risk factors for stroke: Age, cigarette smoking, diabetes, excessive alcohol consumption, family history, high blood pressure, overweight, physical inactivity, prior stroke, heart attack, diagnosis of carotid artery stenosis or other artery disease. If you smoke, STOP: Smoking or tobacco use significantly increases your risk of heart and lung disease. Your chance of disease greatly increases if you continue to smoke. For more information, call the [place] tobacco quit line for smoking cessation 4-135-ZDJS-NOW ( )
[2019-04-11 11:10] VITALS: BP 99/66
== END 2019-04-11 15:38 | disposition home or self-care (01) ==
LOC: EMEROOARM 08:27 → 3NENU 08:27
PROVIDERS: ADMIT Student in an Organized Health Care Education/Training Program; ATTEND Student in an Organized Health Care Education/Training Program

== ENCOUNTER 2019-04-14 01:51 | Observation (INO) ==
--- NOTE | 2019-04-14 02:01 | Emergency Department Note ---
Disposition Clinical Impression: Pyelonephritis, Renal stone Abdominal pain Qualifiers: Abdominal location: unspecified location Qualified Code(s): R10.9 - Unspecified abdominal pain Disposition: Admitted As Inpatient Condition: Fair Time of Disposition: 05:21 General Adult HPI - General Stated complaint: L Flank pain Time Seen by Provider: 04/14/19 01:54 Source: patient, family Mode of arrival: ambulatory Limitations: no limitations Nursing Notes Reviewed: Yes Vital Signs Reviewed: Yes - History of Present Illness HPI Narrative: 44-year-old female past medical history of 15 mm stone managed with ureteral stenting in the left ureter by Dr. John with [facility] approximately 4 days ago presenting with sudden onset pain last evening. Patient states the pain is 10 out of 10 located in her left flank radiating into the left lateral aspect of her abdomen. She also notes hematuria. Patient has no fevers chills no chest p ain shortness of breath neck or back pain numbness or paresthesias lightheadedness dizziness or any other complaint concerns or complaints at this time. Upon my initial evaluation, my general impression is that the patient is in considerable pain, she is otherwise awake, alert, oriented, engaged to conversation and answering questions appropriately. There are no overt lateralizing signs, the patient is in no acute distress; their skin appears to be normal in color, they are not pale, not cyanotic, and not diaphoretic, they are sitting up in hospital bed interacting appropriately with environment. Onset (ago): day(s) Location: abdomen, other (Left flank) Pain Severity: severe Pain Scale: 10 Quality: stabbing, sharp Consistency: constant Improves with: nothing Worsens with: nothing Associated symptoms: Reports: denies other symptoms Treatments Prior to Arrival: none - Related Data Previous Rx's Medication Instructions Recorded Ibuprofen [Motrin] 600 mg PO Q6HR PRN #60 tab 04/11/19 Allergies Allergy/AdvReac Type Severity Reaction Status Date / Time No Known Allergies Allergy Verified 04/14/19 02:54 Review of Systems: *See History of Present Illness for more detail Constitutional: Denies: fever, chills Cardiovascular: Denies: chest pain Respiratory: Denies: dyspnea, cough, hemoptysis Gastrointestinal: Admits: abdominal pain left flank pain, denies: nausea, vomiting, diarrhea, constipation, hematemesis, melena, hematochezia Genitourinary: Admits: hematuria Musculoskeletal: Denies: back pain, neck pain Neurological: Denies: headache, weakness, lightheadedness/dizziness, numbness, paresthesias, difficulty with ambulation. Endocrine: Denies: fatigue All systems ED: reviewed and negative except as stated. Review of Systems: As Per HPI Past Medical History - Past Medical History Medical history: Reports: other Surgical history: Reports: appendectomy, cholecystectomy Psychiatric history: Reports: no psych history - Social History Smoking Status: Current every day smoker Smokeless Tobacco Status: No Alcohol use: Reports: none Drug use: Reports: none Physical Exam Constitutional: Acute distress due to pain, [id number], engaged to conversation, speech is fluid, answers questions appropriately Neuro: GCS 15, no overt focal neurological deficits Head: Atraumatic, normocephalic Eyes: Pupils equal, round and reactive to light, no scleral icterus, no conjunctival injection Neck: Trachea midline without deviation. Anterior neck is supple without swelling. *Chest: Symmetric chest wall rise *Heart: Cardiac rhythm and rate are regular with S1 and S2 , no S3 or S4 appreciated, no murmurs, gallops, rubs, or clicks. *Lungs: Lungs are clear to auscultation bilaterally, without accessory muscle use or prolonged expiratory phase. No wheezes, rhonchi or stridor appreciated. Abdomen: Abdomen is tender to palpation of the left lateral abdomen, otherwise soft to palpation, normal bowel sounds. No abdominal bruit auscultated. Non- distended, non-rigid, no organomegaly, no ascites appreciated. No pulsatile mass, no guarding to palpation in all four quadrants, no rebound Back: Left-sided CVA tenderness Extremities: Normal capillary refill without evidence of pedal edema, joint swelling or erythema. Pulses/motor intact in extremities. Psychiatric exam: Patient displays a normal affect and mood for the environment. No overt signs of hallucination. Integumentary: warm, dry, intact, normal color. No rash, cyanosis, diaphoresis, erythema, or pallor - General Limitations: no limitations General appearance: alert, in distress Course Course Narrative: Concern for worsening of intra-abdominal/retroperitoneal pathology. We will obtain CT scan abdomen and pelvis and basic labs, urinalysis at this time Fentanyl plus Toradol for the management of patient's pain, IV fluids. - Reevaluation(s) Reevaluation #1: Patient states relief of symptoms with management here in the ED, however she notes that he was beginning to return I will give her half milligram of Dilaudid at this time for further pain control. Reevaluation #2: Patient was noted to have UTI on urinalysis with elevated white count on CBC we will give 1 g of Rocephin for pyelonephritis. Vital Signs Temperature 98.9 F 04/14/19 02:23 Pulse Rate 90 04/14/19 02:23 Respiratory Rate 20 04/14/19 02:23 Blood Pressure 121/67 04/14/19 02:23 O2 Sat by Pulse Oximetry 99 04/14/19 02:23 Temperature 98.9 F 04/14/19 02:23 Pulse Rate 70 04/14/19 04:30 Respiratory Rate 18 04/14/19 04:30 Blood Pressure 102/57 04/14/19 04:30 O2 Sat by Pulse Oximetry 96 04/14/19 04:30 Oxygen Delivery Oxygen Delivery Room Air Medical Decision Making - MDM Narrative Medical decision making narrative: Patient found to have UTI with elevated white count along with clinical symptoms of CVA tenderness with diagnosed her at this time with pyelonephritis. She is also found to have worsening of hydronephrosis on the left side status post ureteral stent placement. Patient will be admitted to hospital medicine service for further evaluation and management of pyelonephritis. The patient's pain is currently well-controlled she remains hemodynamically stable time of admission. Patient verbalizes understanding and agreement with our plan of care. - Lab Data Lab results reviewed: Yes I reviewed the patient's lab results. Result diagrams: 04/14/19 02:48 04/14/19 02:48 Lab Results 04/14/19 04/14/19 04/14/19 Range/Units 02:48 02:48 02:48 WBC 17.3 H D (4.3-11.1) K/mcL RBC 5.02 H (3.82-4.97) M/mcL Hgb 15.2 (11.5-15.4) g/dL Hct 45.6 H (35.3-44.9) % MCV 90.8 (83.0-100.0) fL MCH 30.3 (28.0-33.3) pg MCHC 33.3 (31.6-35.5) g/dL RDW 13.8 (11.5-14.5) % Plt Count 246 (140-400) K/mcL MPV 10.2 (9.4-12.4) fL Immature Gran % 0.6 (0-4) % Seg Neutrophils % 84.3 % Lymphocytes % 8.7 % Monocytes % 4.0 % Eosinophils % 2.1 % Basophils % 0.3 % Neutrophils # 14.6 H (1.6-8.9) K/mcL Lymphocytes # 1.5 (0.6-4.6) K/mcL Monocytes # 0.7 (0.0-1.3) K/mcL Eosinophils # 0.4 (0.0-0.6) K/mcL Basophils # 0.1 (0.0-0.2) K/mcL Sodium (136-145) mEq/L Potassium (3.5-5.1) mEq/L Chloride (98-107) mEq/L Carbon Dioxide (23-29) mEq/L BUN (6-20) mg/dL Creatinine (0.60-1.20) mg/dL Est GFR ( Amer) (> 60) Est GFR (Non-Af Amer) (> 60) BUN/Creatinine Ratio (6-26) Glucose (70-105) mg/dL Calculated Osmolality (280-300) Calcium (8.6-10.3) mg/dL Total Bilirubin (0.3-1.0) mg/dL Direct Bilirubin (0.0-0.2) mg/dL Indirect Bilirubin (0.0-1.2) mg/dL AST (13-39) Units/L ALT (7-52) Units/L Alkaline Phosphatase (34-104) Units/L Serum Total Protein (6.4-8.9) g/dL Albumin (3.5-5.7) g/dL Globulin (2.4-3.5) g/dL Albumin/Globulin Ratio (1.1-2.2) Lipase (11-82) Units/L Urine Color Red A (Yellow) Urine Clarity Turbid A (Clear) Urine pH 6.0 (5.0-8.0) pH Units Ur Specific [place] 1.028 H (1.010-1.025) Urine Protein >=300 H (Neg-Trace) mg/dL Urine Glucose (UA) Normal (Normal) mg/dL Urine Ketones Trace H (Negative) mg/dL Urine Blood Large H (Negative) Urine Nitrite Negative (Negative) Urine Bilirubin Small H (Negative) Urine Urobilinogen Normal (Normal) mg/dL Ur Leukocyte Esterase Large H (Negative) Urine Microscopic RBC TNTC H (0-3) per hpf Urine Microscopic WBC TNTC H (0-3) per hpf Ur Squamous Epith Cells Many H (None-Few) per lpf Urine Bacteria None Seen (None-Few) per hpf Hyaline Casts None Seen (None-Few) per lpf Ur Culture Indicated? YES A (NO) Urine Test Negative (Negative) 04/14/19 Range/Units 02:48 WBC (4.3-11.1) K/mcL RBC (3.82-4.97) M/mcL Hgb (11.5-15.4) g/dL Hct (35.3-44.9) % MCV (83.0-100.0) fL MCH (28.0-33.3) pg MCHC (31.6-35.5) g/dL RDW (11.5-14.5) % Plt Count (140-400) K/mcL MPV (9.4-12.4) fL Immature Gran % (0-4) % Seg Neutrophils % % Lymphocytes % % Monocytes % % Eosinophils % % Basophils % % Neutrophils # (1.6-8.9) K/mcL Lymphocytes # (0.6-4.6) K/mcL Monocytes # (0.0-1.3) K/mcL Eosinophils # (0.0-0.6) K/mcL Basophils # (0.0-0.2) K/mcL Sodium 135 L (136-145) mEq/L Potassium 4.2 (3.5-5.1) mEq/L Chloride 109 H (98-107) mEq/L Carbon Dioxide 18 L (23-29) mEq/L BUN 20 (6-20) mg/dL Creatinine 0.74 (0.60-1.20) mg/dL Est GFR ( Amer) > 60 (> 60) Est GFR (Non-Af Amer) > 60 (> 60) BUN/Creatinine Ratio 27 H (6-26) Glucose 109 H (70-105) mg/dL Calculated Osmolality 283 (280-300) Calcium 8.5 L (8.6-10.3) mg/dL Total Bilirubin 0.4 (0.3-1.0) mg/dL Direct Bilirubin 0.1 (0.0-0.2) mg/dL Indirect Bilirubin 0.3 (0.0-1.2) mg/dL AST 14 (13-39) Units/L ALT 14 (7-52) Units/L Alkaline Phosphatase 72 (34-104) Units/L Serum Total Protein 6.2 L (6.4-8.9) g/dL Albumin 3.9 (3.5-5.7) g/dL Globulin 2.3 L (2.4-3.5) g/dL Albumin/Globulin Ratio 1.7 (1.1-2.2) Lipase 13 (11-82) Units/L Urine Color (Yellow) Urine Clarity (Clear) Urine pH (5.0-8.0) pH Units Ur Specific [place] (1.010-1.025) Urine Protein (Neg-Trace) mg/dL Urine Glucose (UA) (Normal) mg/dL Urine Ketones (Negative) mg/dL Urine Blood (Negative) Urine Nitrite (Negative) Urine Bilirubin (Negative) Urine Urobilinogen (Normal) mg/dL Ur Leukocyte Esterase (Negative) Urine Microscopic RBC (0-3) per hpf Urine Microscopic WBC (0-3) per hpf Ur Squamous Epith Cells (None-Few) per lpf Urine Bacteria (None-Few) per hpf Hyaline Casts (None-Few) per lpf Ur Culture Indicated? (NO) Urine Test (Negative) - Radiology Data Radiology results reviewed: Yes I reviewed the patient's radiology results. Abdomen/Pelvis CT 04/14/19 02:39 IMPRESSION: Slight progression of left-sided hydronephrosis after left ureteral stent placement. There has been no change in the calculus in the left renal pelvis. D/ / Alberto Acosta MD / Alberto Acosta MD Interpreting Provider: Alberto Acosta MD
[2019-04-14] MEDS ORDERED: *HR* FentaNYL (PF) 100 MCG/2 ML VIAL IVP ONE (02:39)
[2019-04-14] MEDS ORDERED: Ketorolac 15 MG/ML VIAL IVP ONE (02:40)
[2019-04-14 03:03] LABS: Basophils # 0.1 K/mcL (0.0-0.2); Basophils % 0.3 %; Bilirubin,Urine Small (Negative); Blood,Urine Large (Negative); Clarity,Urine Turbid (Clear); Color,Urine Red (Yellow); Eosinophils # 0.4 K/mcL (0.0-0.6); Eosinophils % 2.1 %; Glucose,Urine (UA) Normal (Normal); Hematocrit 45.6 % (35.3-44.9); Hemoglobin 15.2 g/dL (11.5-15.4); Immature Granulocytes % 0.6 % (0-4); Ketones,Urine Trace mg/dL (Negative); Leukocyte Esterase,Urine Large (Negative); Lymphocytes # 1.5 K/mcL (0.6-4.6); Lymphocytes % 8.7 %; Mean Corpuscular HGB Conc 33.3 g/dL (31.6-35.5); Mean Corpuscular Hemoglobin 30.3 pg (28.0-33.3); Mean Corpuscular Volume 90.8 fL (83.0-100.0); Mean Platelet Volume 10.2 fL (9.4-12.4); Monocytes # 0.7 K/mcL (0.0-1.3); Neutrophils # 14.6 K/mcL (1.6-8.9); Nitrite,Urine Negative (Negative); Platelet Count 246 K/mcL (140-400); Protein,Urine >=300 mg/dL (Neg-Trace); Red Blood Count 5.02 M/mcL (3.82-4.97); Red Cell Distribution Width 13.8 % (11.5-14.5); Segmented Neutrophils % 84.3 %; Specific Gravity,Urine 1.028 (1.010-1.025); Urobilinogen,Urine Normal (Normal); White Blood Count 17.3 K/mcL (4.3-11.1)
[2019-04-14 03:06] LABS: Bacteria,Urine None Seen per hpf (None-Few); Hyaline Casts,Urine None Seen per lpf (None-Few); RBC,Urine TNTC per hpf (0-3); Squamous Epithelial Cell,Urine Many per lpf (None-Few); WBC,Urine TNTC per hpf (0-3)
[2019-04-14 03:21] LABS: Alanine Aminotransferase 14 Units/L (7-52); Albumin 3.9 g/dL (3.5-5.7); Albumin/Globulin Ratio 1.7 (1.1-2.2); Alkaline Phosphatase 72 Units/L (34-104); Aspartate Amino Transferase 14 Units/L (13-39); BUN/Creatinine Ratio 27 (6-26); Bilirubin,Direct 0.1 mg/dL (0.0-0.2); Bilirubin,Indirect 0.3 mg/dL (0.0-1.2); Bilirubin,Total 0.4 mg/dL (0.3-1.0); Blood Urea Nitrogen 20 mg/dL (6-20); Calcium 8.5 mg/dL (8.6-10.3); Carbon Dioxide 18 mEq/L (23-29); Chloride 109 mEq/L (98-107); Globulin 2.3 g/dL (2.4-3.5); Glucose 109 mg/dL (70-105); Lipase 13 Units/L (11-82); Osmolality,Calculated 283 (280-300); Potassium 4.2 mEq/L (3.5-5.1); Sodium 135 mEq/L (136-145); Total Protein 6.2 g/dL (6.4-8.9); eGFR For African Americans > 60 (> 60); eGFR For Non-African Americans > 60 (> 60)
[2019-04-14] MEDS ORDERED: cefTRIAXone 1,000 MG in 0.9 % Sodium Chloride Mini Bag 100 ML IVPB ONE (04:08)
--- NOTE | 2019-04-14 04:21 | Emergency Department Note ---
Disposition Clinical Impression: Pyelonephritis, Renal stone Abdominal pain Qualifiers: Abdominal location: unspecified location Qualified Code(s): R10.9 - Unspecified abdominal pain Disposition: Admitted As Inpatient Condition: Fair Time of Disposition: 04:30 General Adult HPI - General Chief complaint: ED Abdominal Pain Stated complaint: L Flank pain Time Seen by Provider: 04/14/19 01:54 Source: patient Nursing Notes Reviewed: Yes Vital Signs Reviewed: Yes - History of Present Illness Pain Scale: 1 - Related Data Previous Rx's Medication Instructions Recorded Ibuprofen [Motrin] 600 mg PO Q6HR PRN #60 tab 04/11/19 Allergies Allergy/AdvReac Type Severity Reaction Status Date / Time No Known Allergies Allergy Verified 04/14/19 02:54 Past Medical History - Past Medical History Medical history: Reports: other Surgical history: Reports: appendectomy, cholecystectomy Psychiatric history: Reports: no psych history - Social History Smoking Status: Current every day smoker Smokeless Tobacco Status: No Alcohol use: Reports: occasionally Drug use: Reports: none Physical Exam - General General appearance: alert Course Vital Signs Temperature 98.9 F 04/14/19 02:23 Pulse Rate 90 04/14/19 02:23 Respiratory Rate 20 04/14/19 02:23 Blood Pressure 121/67 04/14/19 02:23 O2 Sat by Pulse Oximetry 99 04/14/19 02:23 Temperature 98.9 F 04/14/19 02:23 Pulse Rate 77 04/14/19 04:02 Respiratory Rate 18 04/14/19 04:02 Blood Pressure 100/62 04/14/19 04:02 O2 Sat by Pulse Oximetry 95 04/14/19 04:02 Oxygen Delivery Oxygen Delivery Room Air Medical Decision Making - Medical Records Medical records reviewed: Yes I reviewed the patient's medical records. - Lab Data Lab results reviewed: Yes I reviewed the patient's lab results. Result diagrams: 04/14/19 02:48 04/14/19 02:48 Lab Results 04/14/19 04/14/19 04/14/19 Range/Units 02:48 02:48 02:48 WBC 17.3 H D (4.3-11.1) K/mcL RBC 5.02 H (3.82-4.97) M/mcL Hgb 15.2 (11.5-15.4) g/dL Hct 45.6 H (35.3-44.9) % MCV 90.8 (83.0-100.0) fL MCH 30.3 (28.0-33.3) pg MCHC 33.3 (31.6-35.5) g/dL RDW 13.8 (11.5-14.5) % Plt Count 246 (140-400) K/mcL MPV 10.2 (9.4-12.4) fL Immature Gran % 0.6 (0-4) % Seg Neutrophils % 84.3 % Lymphocytes % 8.7 % Monocytes % 4.0 % Eosinophils % 2.1 % Basophils % 0.3 % Neutrophils # 14.6 H (1.6-8.9) K/mcL Lymphocytes # 1.5 (0.6-4.6) K/mcL Monocytes # 0.7 (0.0-1.3) K/mcL Eosinophils # 0.4 (0.0-0.6) K/mcL Basophils # 0.1 (0.0-0.2) K/mcL Sodium (136-145) mEq/L Potassium (3.5-5.1) mEq/L Chloride (98-107) mEq/L Carbon Dioxide (23-29) mEq/L BUN (6-20) mg/dL Creatinine (0.60-1.20) mg/dL Est GFR ( Amer) (> 60) Est GFR (Non-Af Amer) (> 60) BUN/Creatinine Ratio (6-26) Glucose (70-105) mg/dL Calculated Osmolality (280-300) Calcium (8.6-10.3) mg/dL Total Bilirubin (0.3-1.0) mg/dL Direct Bilirubin (0.0-0.2) mg/dL Indirect Bilirubin (0.0-1.2) mg/dL AST (13-39) Units/L ALT (7-52) Units/L Alkaline Phosphatase (34-104) Units/L Serum Total Protein (6.4-8.9) g/dL Albumin (3.5-5.7) g/dL Globulin (2.4-3.5) g/dL Albumin/Globulin Ratio (1.1-2.2) Lipase (11-82) Units/L Urine Color Red A (Yellow) Urine Clarity Turbid A (Clear) Urine pH 6.0 (5.0-8.0) pH Units Ur Specific [place] 1.028 H (1.010-1.025) Urine Protein >=300 H (Neg-Trace) mg/dL Urine Glucose (UA) Normal (Normal) mg/dL Urine Ketones Trace H (Negative) mg/dL Urine Blood Large H (Negative) Urine Nitrite Negative (Negative) Urine Bilirubin Small H (Negative) Urine Urobilinogen Normal (Normal) mg/dL Ur Leukocyte Esterase Large H (Negative) Urine Microscopic RBC TNTC H (0-3) per hpf Urine Microscopic WBC TNTC H (0-3) per hpf Ur Squamous Epith Cells Many H (None-Few) per lpf Urine Bacteria None Seen (None-Few) per hpf Hyaline Casts None Seen (None-Few) per lpf Ur Culture Indicated? YES A (NO) Urine Test Negative (Negative) 04/14/19 Range/Units 02:48 WBC (4.3-11.1) K/mcL RBC (3.82-4.97) M/mcL Hgb (11.5-15.4) g/dL Hct (35.3-44.9) % MCV (83.0-100.0) fL MCH (28.0-33.3) pg MCHC (31.6-35.5) g/dL RDW (11.5-14.5) % Plt Count (140-400) K/mcL MPV (9.4-12.4) fL Immature Gran % (0-4) % Seg Neutrophils % % Lymphocytes % % Monocytes % % Eosinophils % % Basophils % % Neutrophils # (1.6-8.9) K/mcL Lymphocytes # (0.6-4.6) K/mcL Monocytes # (0.0-1.3) K/mcL Eosinophils # (0.0-0.6) K/mcL Basophils # (0.0-0.2) K/mcL Sodium 135 L (136-145) mEq/L Potassium 4.2 (3.5-5.1) mEq/L Chloride 109 H (98-107) mEq/L Carbon Dioxide 18 L (23-29) mEq/L BUN 20 (6-20) mg/dL Creatinine 0.74 (0.60-1.20) mg/dL Est GFR ( Amer) > 60 (> 60) Est GFR (Non-Af Amer) > 60 (> 60) BUN/Creatinine Ratio 27 H (6-26) Glucose 109 H (70-105) mg/dL Calculated Osmolality 283 (280-300) Calcium 8.5 L (8.6-10.3) mg/dL Total Bilirubin 0.4 (0.3-1.0) mg/dL Direct Bilirubin 0.1 (0.0-0.2) mg/dL Indirect Bilirubin 0.3 (0.0-1.2) mg/dL AST 14 (13-39) Units/L ALT 14 (7-52) Units/L Alkaline Phosphatase 72 (34-104) Units/L Serum Total Protein 6.2 L (6.4-8.9) g/dL Albumin 3.9 (3.5-5.7) g/dL Globulin 2.3 L (2.4-3.5) g/dL Albumin/Globulin Ratio 1.7 (1.1-2.2) Lipase 13 (11-82) Units/L Urine Color (Yellow) Urine Clarity (Clear) Urine pH (5.0-8.0) pH Units Ur Specific [place] (1.010-1.025) Urine Protein (Neg-Trace) mg/dL Urine Glucose (UA) (Normal) mg/dL Urine Ketones (Negative) mg/dL Urine Blood (Negative) Urine Nitrite (Negative) Urine Bilirubin (Negative) Urine Urobilinogen (Normal) mg/dL Ur Leukocyte Esterase (Negative) Urine Microscopic RBC (0-3) per hpf Urine Microscopic WBC (0-3) per hpf Ur Squamous Epith Cells (None-Few) per lpf Urine Bacteria (None-Few) per hpf Hyaline Casts (None-Few) per lpf Ur Culture Indicated? (NO) Urine Test (Negative) - Radiology Data Radiology results reviewed: Yes I reviewed the patient's radiology results. Abdomen/Pelvis CT 04/14/19 02:39 IMPRESSION: Slight progression of left-sided hydronephrosis after left ureteral stent placement. There has been no change in the calculus in the left renal pelvis. D/ / Alberto Acosta MD / Alberto Acosta MD Interpreting Provider: Alberto Acosta MD Attestation Statement - Attestation Attestation: I, Griffin Jones MD, personally evaluated this patient and discussed their management with the resident physician. I reviewed the resident's note and agree with the documented findings, medical decision making, and plan of care. 44-year-old female who had a left ureteral stent placed 4 days ago for left flank pain presents to the emergency department with a complaint of exacerbation of the left flank pain today associated with nausea and vomiting. Chills but no definite fever. The urine has been bloody. On examination patient is a well-developed well-nourished female in no acute distress. She is alert and oriented 3. There is no cyanosis or diaphoresis. Breath sounds are clear and equal bilaterally. Heart regular rate and rhythm. Abdomen soft with normal bowel sounds. There is mild left mid abdominal tenderness. Moderate left CVA tenderness. Labs reviewed. Patient has TNTC wbc's on urinalysis. WBC 17 which is increased from [address] of the abdomen and pelvis shows progression of the left hydronephrosis from 4 days ago despite stent placement. Concern for infection in this patient with a stent and large stone who now has increased pain with increased WBC count and increase hydronephrosis. We will start IV antibiotics and admit to the hospital. The hospitalist, Dr. Tran, was consulted and accepted admission of the patient.
[2019-04-14] MEDS ORDERED: Ibuprofen 600 MG TABLET PO PRN (04:40)
[2019-04-14] MEDS ORDERED: Naloxone 0.4 MG/ML INJ IVP PRN (04:41)
[2019-04-14] MEDS ORDERED: Acetaminophen 325 MG TABLET PO PRN (04:41)
[2019-04-14] MEDS ORDERED: Ondansetron 4 MG/2 ML VIAL IVP PRN (04:41)
[2019-04-14] MEDS ORDERED: Ringers Solution, Lactated 1,000 ML IVC ONE (04:41)
[2019-04-14] MEDS ORDERED: *HR* OxyCODONE Immed Rel 5 MG TABLET PO PRN (04:41)
[2019-04-14] MEDS: *HR* HYDROmorphone (PF) 1 MG/ML SYRINGE IVP ONE ×2 (04:47→04:57)
[2019-04-14] MEDS ORDERED: Ketorolac 30 MG/ML VIAL IVP PRN (05:00)
--- NOTE | 2019-04-14 05:15 | Internal Med History&Physical ---
Date of Encounter: 04/14/19 Time of Encounter: 05:13 Internal Medicine - H&P: HPI Chief complaint: flank pain Admitted From: Home Plans for Post Hospital Care: Home History of present illness: Hoa Carbajal is a 44-year-old woman who discharged from here 2 days ago after presenting with left flank pain and was found to have a large stone in her left renal pelvis with peripelvic fat stranding concerning for pyelitis. She was taken to the operating room and had a left double-J stent with plans for out patient follow-up in 1-2 weeks for stent removal. She says she has been doing well after discharge however last night at around 11 PM she developed pain in her left lumbar region that was rapidly progressing in intensity and I will ultimately became 10 out of 10 in severity prompted her to seek medical attention. She has also had some chills but no fever. She notes that her urine is darker and feels pressure when she urinates. She denies associated nausea, vomiting and diarrhea. On arrival she has been hemodynamically stable with blood work revealed a significant elevation in her leukocyte count to 17.[address] scan shows slight progression of the left-sided hydronephrosis after sten t placements with no change in the calculus. She was given some analgesics and is admitted for further care. Vitals: Reviewed General: Well-developed white woman lying in bed in notable discomfort and antalgic posturing. Skin: Warm, pale and dry. HEENT: Moist mucous membranes. No conjunctivae pallor. Neck: No lymphadenopathy. No JVD. No carotid bruits. No palpable thyroid. Chest: Normal thoracic expansion. Normal breath sounds. Clear to auscultation. Heart: Normal S1 & S2; rhythmic. No rubs or murmurs. Abdomen: Non-distended, soft and tender to palpation left flank. + Exquisite left CVA tenderness Extremities: No clubbing, cyanosis or edema. No calf tenderness. Normal distal pulses. Neurological: Awake, alert and oriented to person, place and time. No focal deficits. Psych: Affect appropriate. Assessment/Plan 1. Complicated urinary tract infection: Given the presence of an underlying stent with what seems to be an obstructive large stone. Despite the stent she has progressing inflammatory signs. Will start fluid resuscitation, obtain blood cultures and lactic acid. Continue empiric ceftriaxone 1gr daily, provide analgesics as needed. Keep NPO for now pending urology evaluation. 2. Obesity: Counseled and educated on therapeutic lifestyle changes for weight loss as it will be of benefit in controlling comorbidities. Bronze Plater evaluation advised. 3. DVT prophylaxis: Antiembolic stockings ordered. 4. Tobacco use: 5 minutes were spent counseling and educating the patient on this habit. loan services professional and resources were made available. Past Med Surg Social Fam HX - Past Medical History Medical history: other Additional medical history: obesity, hemorrhoids. SMOKER Psychiatric history: no psych history - Past Surgical History Surgical History: appendectomy, cholecystectomy Additional surgical history: tonsillectomy - Social History Smoking Status: Current every day smoker Smokeless Tobacco Status: No Alcohol use: occasionally Drug use: none Internal Medicine - H&P: Meds Ibuprofen [Motrin] 600 mg PO Q6HR PRN #60 tab 04/11/19 [Rx] Allergy/AdvReac Type Severity Reaction Status Date / Time No Known Allergies Allergy Verified 04/14/19 02:54 All Systems PM: A 10-system review of systems was performed and is negative for pertinent findings except as documented above in the HPI. Family history reviewed and fo und non-contributory. - Constitutional Vitals: Temp Pulse Resp BP Pulse Ox 98.9 F 70 18 102/57 96 04/14/19 02:23 04/14/19 04:30 04/14/19 04:30 04/14/19 04:30 04/14/19 04:30 Exam: . Internal Med - H&P Results - Labs CBC & Chem 7: 04/14/19 02:48 04/14/19 02:48 Labs: Short CBC 04/14/19 Range/Units 02:48 WBC 17.3 H D (4.3-11.1) K/mcL Hgb 15.2 (11.5-15.4) g/dL Hct 45.6 H (35.3-44.9) % Plt Count 246 (140-400) K/mcL Neutrophils # 14.6 H (1.6-8.9) K/mcL BMP 04/14/19 02:48 Sodium 135 L Potassium 4.2 Chloride 109 H Carbon Dioxide 18 L BUN 20 Creatinine 0.74 Glucose 109 H Calcium 8.5 L Liver Function 04/14/19 Range/Units 02:48 Total Bilirubin 0.4 (0.3-1.0) mg/dL Direct Bilirubin 0.1 (0.0-0.2) mg/dL AST 14 (13-39) Units/L ALT 14 (7-52) Units/L Alkaline Phosphatase 72 (34-104) Units/L Albumin 3.9 (3.5-5.7) g/dL Urine 04/14/19 Range/Units 02:48 Urine Color Red A (Yellow) Urine Clarity Turbid A (Clear) Urine pH 6.0 (5.0-8.0) pH Units Ur Specific [place] 1.028 H (1.010-1.025) Urine Protein >=300 H (Neg-Trace) mg/dL Urine Glucose (UA) Normal (Normal) mg/dL - Impressions ITS Impressions Abdomen/Pelvis CT 04/14/19 02:39 IMPRESSION: Slight progression of left-sided hydronephrosis after left ureteral stent placement. There has been no change in the calculus in the left renal pelvis. D/ / Alberto Acosta MD / Alberto Acosta MD Interpreting Provider: Alberto Acosta MD - Time Spent With Patient Total time spent is greater than 50% in coordination of care (as documented) at patient's floor/unit and/or counseling patient:
[2019-04-14 05:31] LABS: INR 1.1
[2019-04-14 05:33] LABS: Activated Partial Thrombo Time 31.7 Seconds (26.0-36.0)
[2019-04-14] MEDS: Ringers Solution, Lactated 1,000 ML IVC SCH ×3 (06:32→22:15)
--- NOTE | 2019-04-14 09:36 | Urology - Consult Note ---
<Kyra Patel N - Last Filed: 04/14/19 09:34> Date of Encounter: 04/14/19 Time of Encounter: 08:30 - Assessment and Plan (1) Kidney stone Current Visit: Yes Status: Acute Assessment and plan: Patient is a 44-year-old female who presents 4 days status post cystoscopy, left atrial pyelogram and left ureteral stent placement. Vital signs are stable and afebrile. White blood cell count is elevated to 17.3. Blood and urine cultures have been collected. Renal function is reassuring. Previous urine culture appe ars contaminated. We will plan to await urine culture, and continue with IV antibiotics and pain control. Urology will continue to follow. (2) Flank pain Current Visit: Yes Status: Acute Urology CN:HPI Consult date: 04/14/19 Reason for consult Urology: Hydronephrosis (s/p left ureteral stent on 04/10/19; UTI; flank pain) Requesting physician: Shailesh Helms History of present illness: Patient is a 44-year-old female who presents 4 days status post cystoscopy, left retrograde ureteral pyelography, and left double-J stent placement for a 1 cm left renal pelvis stone. Patient was discharged on postoperative day #1, and she reports doing very well for 2 days at home. Patient states she experienced acute onset of intractable left flank pain accompanied with gross hematuria, nausea and vomiting. Patient presented to the emergency department where she underwent a CT of the abdomen and pelvis redemonstrating left hydronephrosis and appropriate placement of indwelling left ureteral stent. Currently, patient is sitting upright in bed in no apparent distress. She denies any fever, but she admits to chills, dysuria, urgency, frequency, and gross hematuria. Past Med Surg Social Fam HX - Past Medical History Medical history: other Additional medical history: obesity, hemorrhoids. SMOKER Psychiatric history: no psych history - Past Surgical History Surgical History: appendectomy, cholecystectomy Additional surgical history: tonsillectomy - Social History Smoking Status: Current every day smoker Packs per day: 0.75 Smokeless Tobacco Status: No Alcohol use: occasionally Drug use: none - Family History Mother Adopted: [place]: [employer] Family Member Ethnicity: Non- Living Status: Age at : 77 Cause of : CHF Hx Family Cardiac Disorders: Yes Hx Family Respiratory Disorders: Yes (COPD) Hx Family Cancer: No Hx Family GI Disorders: No Hx Family Genitourinary Disorders: No Hx Family Endocrine Disorder: No Hx Family Musculoskeletal Disorders: No Hx Family Neuromuscular Disorders: No Hx Family Neurologic Disorders: No Hx Family HEENT Disorders: No Hx Family Autoimmune Disorders: No Hx Family Reproductive Disorders: No Hx Family Psychosocial Disorders: No Hx Family Medical Disorders: No Medications and Allergies Ibuprofen [Motrin] 600 mg PO Q6HR PRN #60 tab 04/11/19 [Rx] Allergy/AdvReac Type Severity Reaction Status Date / Time No Known Allergies Allergy Verified 04/14/19 02:54 Review of Systems - Constitutional chills, fatigue, no fever(s) - EENT Nose, mouth and throat: no dizziness, no headache(s) - Cardiovascular no chest pain, no diaphoresis, no dyspnea - Respiratory no cough, no dyspnea - Gastrointestinal abdominal pain, nausea, vomiting - Genitourinary Genitourinary: dysuria, flank pain, hematuria, urinary frequency, urinary urgency, no difficulty voiding, no urinary hesitancy, no urinary incontinence - Musculoskeletal back pain, no muscle weakness - Integumentary no erythema, no rash - Neurological no confusion, no syncope - Psychiatric no anxiety, no confusion - Hematologic/Lymphatic no easy bleeding, no easy bruising - Allergic/Immunologic no throat swelling, no wheezing Exam Initial Vital Signs Temp Pulse Resp BP Pulse Ox 98.9 F 90 20 121/67 99 04/14/19 02:23 04/14/19 02:23 04/14/19 02:23 04/14/19 02:23 04/14/19 02:23 - General physical appearance Present: no distress, moderate pain - Eyes Present: PERRL, normal ocular movement - ENT Present: normal nares, no hearing loss, no congestion - Neck Present: no masses, trachea midline, no lymphadenopathy - Respiratory Present: normal respiratory effort - Cardiovascular Cardiovascular exam IM: RRR - Abdomen Abdomen: Present: soft, non tender. Absent: distended - Genitourinary Present: other (no cvat) - Integumentary Present: no rash, no abnormal pigmentation - Neurologic Present: normal coordination - Musculoskeletal Present: other (normal posture ) Urology Results - Labs 04/14/19 02:48 04/14/19 02:48 Abnormal lab results WBC 17.3 K/mcL (4.3-11.1) H D 04/14/19 02:48 RBC 5.02 M/mcL (3.82-4.97) H 04/14/19 02:48 Hct 45.6 % (35.3-44.9) H 04/14/19 02:48 Neutrophils # 14.6 K/mcL (1.6-8.9) H 04/14/19 02:48 Sodium 135 mEq/L (136-145) L 04/14/19 02:48 Chloride 109 mEq/L (98-107) H 04/14/19 02:48 Carbon Dioxide 18 mEq/L (23-29) L 04/14/19 02:48 BUN/Creatinine Ratio 27 (6-26) H 04/14/19 02:48 Glucose 109 mg/dL (70-105) H 04/14/19 02:48 Lactic Acid 0.4 mmol/L (0.5-2.2) L 04/14/19 05:05 Calcium 8.5 mg/dL (8.6-10.3) L 04/14/19 02:48 Serum Total Protein 6.2 g/dL (6.4-8.9) L 04/14/19 02:48 Globulin 2.3 g/dL (2.4-3.5) L 04/14/19 02:48 Urine Color Red (Yellow) A 04/14/19 02:48 Urine Clarity Turbid (Clear) A 04/14/19 02:48 Ur Specific [place] 1.028 (1.010-1.025) H 04/14/19 02:48 Urine Protein >=300 mg/dL (Neg-Trace) H 04/14/19 02:48 Urine Ketones Trace mg/dL (Negative) H 04/14/19 02:48 Urine Blood Large (Negative) H 04/14/19 02:48 Urine Bilirubin Small (Negative) H 04/14/19 02:48 Ur Leukocyte Esterase Large (Negative) H 04/14/19 02:48 Urine Microscopic RBC TNTC per hpf (0-3) H 04/14/19 02:48 Urine Microscopic WBC TNTC per hpf (0-3) H 04/14/19 02:48 Ur Squamous Epith Cells Many per lpf (None-Few) H 04/14/19 02:48 Ur Culture Indicated? YES (NO) A 04/14/19 02:48 Diabetes panel 04/14/19 Range/Units 02:48 Sodium 135 L (136-145) mEq/L Potassium 4.2 (3.5-5.1) mEq/L Chloride 109 H (98-107) mEq/L Carbon Dioxide 18 L (23-29) mEq/L BUN 20 (6-20) mg/dL Creatinine 0.74 (0.60-1.20) mg/dL Glucose 109 H (70-105) mg/dL Calcium 8.5 L (8.6-10.3) mg/dL AST 14 (13-39) Units/L ALT 14 (7-52) Units/L Alkaline Phosphatase 72 (34-104) Units/L Albumin 3.9 (3.5-5.7) g/dL Calcium panel 04/14/19 Range/Units 02:48 Calcium 8.5 L (8.6-10.3) mg/dL Albumin 3.9 (3.5-5.7) g/dL Pituitary panel 04/14/19 Range/Units 02:48 Sodium 135 L (136-145) mEq/L Potassium 4.2 (3.5-5.1) mEq/L Chloride 109 H (98-107) mEq/L Carbon Dioxide 18 L (23-29) mEq/L BUN 20 (6-20) mg/dL Creatinine 0.74 (0.60-1.20) mg/dL Glucose 109 H (70-105) mg/dL Calcium 8.5 L (8.6-10.3) mg/dL Adrenal panel 04/14/19 Range/Units 02:48 Sodium 135 L (136-145) mEq/L Potassium 4.2 (3.5-5.1) mEq/L Chloride 109 H (98-107) mEq/L Carbon Dioxide 18 L (23-29) mEq/L BUN 20 (6-20) mg/dL Creatinine 0.74 (0.60-1.20) mg/dL Glucose 109 H (70-105) mg/dL Calcium 8.5 L (8.6-10.3) mg/dL Total Bilirubin 0.4 (0.3-1.0) mg/dL AST 14 (13-39) Units/L ALT 14 (7-52) Units/L Alkaline Phosphatase 72 (34-104) Units/L Albumin 3.9 (3.5-5.7) g/dL All other labs normal. - Imaging CT scan - abdomen: report reviewed, image reviewed CT scan - pelvis: report reviewed, image reviewed Consult Discharge Plan - Plan Referrals: Amrik Echeverria Jr, MD [Primary Care Provider] - (Appointment has been requested.) <Kalyan Roe - Last Filed: 04/14/19 15:32> Date of Encounter: 04/14/19 Urology CN:HPI History of present illness: Patient was seen and examined independently. I agree with the plan as written by Kyra Patel. At this time patient having pain consistent with stent. Awaiting urine culture. We will continue to follow along at this time. Expectation that her pain would improve but I did explain to the patient that she could expect some discomfort from her ureteral stent until the stone is treated. Exam Initial Vital Signs Temp Pulse Resp BP Pulse Ox 98.9 F 90 20 121/67 99 04/14/19 02:23 04/14/19 02:23 04/14/19 02:23 04/14/19 02:23 04/14/19 02:23 Urology Results - Labs 04/14/19 02:48 04/14/19 02:48 Abnormal lab results WBC 17.3 K/mcL (4.3-11.1) H D 04/14/19 02:48 RBC 5.02 M/mcL (3.82-4.97) H 04/14/19 02:48 Hct 45.6 % (35.3-44.9) H 04/14/19 02:48 Neutrophils # 14.6 K/mcL (1.6-8.9) H 04/14/19 02:48 Sodium 135 mEq/L (136-145) L 04/14/19 02:48 Chloride 109 mEq/L (98-107) H 04/14/19 02:48 Carbon Dioxide 18 mEq/L (23-29) L 04/14/19 02:48 BUN/Creatinine Ratio 27 (6-26) H 04/14/19 02:48 Glucose 109 mg/dL (70-105) H 04/14/19 02:48 Lactic Acid 0.4 mmol/L (0.5-2.2) L 04/14/19 05:05 Calcium 8.5 mg/dL (8.6-10.3) L 04/14/19 02:48 Serum Total Protein 6.2 g/dL (6.4-8.9) L 04/14/19 02:48 Globulin 2.3 g/dL (2.4-3.5) L 04/14/19 02:48 Urine Color Red (Yellow) A 04/14/19 02:48 Urine Clarity Turbid (Clear) A 04/14/19 02:48 Ur Specific [place] 1.028 (1.010-1.025) H 04/14/19 02:48 Urine Protein >=300 mg/dL (Neg-Trace) H 04/14/19 02:48 Urine Ketones Trace mg/dL (Negative) H 04/14/19 02:48 Urine Blood Large (Negative) H 04/14/19 02:48 Urine Bilirubin Small (Negative) H 04/14/19 02:48 Ur Leukocyte Esterase Large (Negative) H 04/14/19 02:48 Urine Microscopic RBC TNTC per hpf (0-3) H 04/14/19 02:48 Urine Microscopic WBC TNTC per hpf (0-3) H 04/14/19 02:48 Ur Squamous Epith Cells Many per lpf (None-Few) H 04/14/19 02:48 Ur Culture Indicated? YES (NO) A 04/14/19 02:48 Diabetes panel 04/14/19 Range/Units 02:48 Sodium 135 L (136-145) mEq/L Potassium 4.2 (3.5-5.1) mEq/L Chloride 109 H (98-107) mEq/L Carbon Dioxide 18 L (23-29) mEq/L BUN 20 (6-20) mg/dL Creatinine 0.74 (0.60-1.20) mg/dL Glucose 109 H (70-105) mg/dL Calcium 8.5 L (8.6-10.3) mg/dL AST 14 (13-39) Units/L ALT 14 (7-52) Units/L Alkaline Phosphatase 72 (34-104) Units/L Albumin 3.9 (3.5-5.7) g/dL Calcium panel 04/14/19 Range/Units 02:48 Calcium 8.5 L (8.6-10.3) mg/dL Albumin 3.9 (3.5-5.7) g/dL Pituitary panel 04/14/19 Range/Units 02:48 Sodium 135 L (136-145) mEq/L Potassium 4.2 (3.5-5.1) mEq/L Chloride 109 H (98-107) mEq/L Carbon Dioxide 18 L (23-29) mEq/L BUN 20 (6-20) mg/dL Creatinine 0.74 (0.60-1.20) mg/dL Glucose 109 H (70-105) mg/dL Calcium 8.5 L (8.6-10.3) mg/dL Adrenal panel 04/14/19 Range/Units 02:48 Sodium 135 L (136-145) mEq/L Potassium 4.2 (3.5-5.1) mEq/L Chloride 109 H (98-107) mEq/L Carbon Dioxide 18 L (23-29) mEq/L BUN 20 (6-20) mg/dL Creatinine 0.74 (0.60-1.20) mg/dL Glucose 109 H (70-105) mg/dL Calcium 8.5 L (8.6-10.3) mg/dL Total Bilirubin 0.4 (0.3-1.0) mg/dL AST 14 (13-39) Units/L ALT 14 (7-52) Units/L Alkaline Phosphatase 72 (34-104) Units/L Albumin 3.9 (3.5-5.7) g/dL All other labs normal.
[2019-04-14] MEDS ORDERED: cefTRIAXone 1,000 MG in Water for inj. (sterile) 10 ML IVPB SCH (12:00)
[2019-04-15 04:15] LABS: Basophils % 0.4 %; Eosinophils # 0.4 K/mcL (0.0-0.6); Eosinophils % 4.4 %; Hematocrit 39.8 % (35.3-44.9); Immature Granulocytes % 0.5 % (0-4); Lymphocytes # 2.4 K/mcL (0.6-4.6); Mean Corpuscular HGB Conc 32.4 g/dL (31.6-35.5); Mean Corpuscular Hemoglobin 29.8 pg (28.0-33.3); Mean Corpuscular Volume 91.9 fL (83.0-100.0); Mean Platelet Volume 10.6 fL (9.4-12.4); Monocytes # 0.5 K/mcL (0.0-1.3); Monocytes % 5.6 %; Neutrophils # 5.1 K/mcL (1.6-8.9); Platelet Count 221 K/mcL (140-400); Red Blood Count 4.33 M/mcL (3.82-4.97); Segmented Neutrophils % 60.1 %
[2019-04-15 04:19] LABS: Hemoglobin 12.9 g/dL (11.5-15.4); White Blood Count 8.4 K/mcL (4.3-11.1)
[2019-04-15 04:35] LABS: BUN/Creatinine Ratio 26 (6-26); Blood Urea Nitrogen 18 mg/dL (6-20); Calcium 8.3 mg/dL (8.6-10.3); Carbon Dioxide 21 mEq/L (23-29); Chloride 110 mEq/L (98-107); Glucose 95 mg/dL (70-105); Osmolality,Calculated 284 (280-300); Potassium 4.3 mEq/L (3.5-5.1); Sodium 136 mEq/L (136-145); eGFR For African Americans > 60 (> 60); eGFR For Non-African Americans > 60 (> 60)
[2019-04-15] MEDS: Ringers Solution, Lactated 1,000 ML IVC SCH (06:30)
[2019-04-15 08:08] VITALS: BP 94/60
--- NOTE | 2019-04-15 09:07 | Urology Progress Note ---
<Kyra Patel N - Last Filed: 04/15/19 09:09> Date of Encounter: 04/15/19 Time of Encounter: 08:00 - Assessment and Plan (1) Kidney stone Current Visit: Yes Status: Acute Assessment and plan: Patient is a 44-year-old female who presents 5 days status post cystoscopy, left retrograde ureteral pyelography, left double-J stent placement. Patient was dismissed postoperatively in satisfactory condition, but on postoperative day #2, patient experienced a recurrence of left flank pain. Vital signs have been stable and afebrile, and white blood cell count and renal function are within normal range. Urine culture is negative. Patient was likely experiencing ureteral spasm. Patient is okay to be discharged from a urologic standpoint, and she will require an outpatient follow-up with Dr. John within 1-2 weeks. (2) Flank pain Current Visit: Yes Status: Acute Progress Note Subjective: no new complaints, feels better Narrative: Patient seen and examined sitting upright in bed in no apparent distress. Patient states pain is well-controlled, and she is voiding well without difficulty. Patient states she is tolerating normal diet without nausea or vomiting. Objective Initial Vital Signs Temp Pulse Resp BP Pulse Ox 98.9 F 90 20 121/67 99 04/14/19 02:23 04/14/19 02:23 04/14/19 02:23 04/14/19 02:23 04/14/19 02:23 - General physical appearance Present: no distress, no pain - Respiratory Present: normal expansion, normal respiratory effort - Abdomen Present: soft, non tender. Absent: distended - Integumentary Present: no rash, no abnormal pigmentation - Musculoskeletal Present: normal posture - Psychiatric Present: oriented to time, oriented to person, oriented to place, speech is normal, memory intact - Labs 04/15/19 03:25 04/15/19 03:25 Diabetes panel 04/15/19 Range/Units 03:25 Sodium 136 (136-145) mEq/L Potassium 4.3 (3.5-5.1) mEq/L Chloride 110 H (98-107) mEq/L Carbon Dioxide 21 L (23-29) mEq/L BUN 18 (6-20) mg/dL Creatinine 0.68 (0.60-1.20) mg/dL Glucose 95 (70-105) mg/dL Calcium 8.3 L (8.6-10.3) mg/dL Calcium panel 04/15/19 Range/Units 03:25 Calcium 8.3 L (8.6-10.3) mg/dL Pituitary panel 04/15/19 Range/Units 03:25 Sodium 136 (136-145) mEq/L Potassium 4.3 (3.5-5.1) mEq/L Chloride 110 H (98-107) mEq/L Carbon Dioxide 21 L (23-29) mEq/L BUN 18 (6-20) mg/dL Creatinine 0.68 (0.60-1.20) mg/dL Glucose 95 (70-105) mg/dL Calcium 8.3 L (8.6-10.3) mg/dL Adrenal panel 04/15/19 Range/Units 03:25 Sodium 136 (136-145) mEq/L Potassium 4.3 (3.5-5.1) mEq/L Chloride 110 H (98-107) mEq/L Carbon Dioxide 21 L (23-29) mEq/L BUN 18 (6-20) mg/dL Creatinine 0.68 (0.60-1.20) mg/dL Glucose 95 (70-105) mg/dL Calcium 8.3 L (8.6-10.3) mg/dL Consult Discharge Plan - Plan Referrals: Amrik Echeverria Jr, MD [Primary Care Provider] - (Appointment has been requested.) Ishan John [Partnered Physician] - 04/21/19 1:30 pm Prescriptions: OxyCODONE Immed Rel [Roxicodone 5 MG] 10 mg PO Q6H PRN 5 Days #20 tablet PRN Reason: Severe Pain <Kalyan Roe - Last Filed: 04/15/19 14:55> Date of Encounter: 04/15/19 Progress Note Narrative: Patient was seen and examined independently. I reviewed the plan as written by Kyra Patel. At this time patient is improving. Okay to discharge from urology standpoint. Patient can follow-up with Dr. John in next 1-2 weeks. Objective Initial Vital Signs Temp Pulse Resp BP Pulse Ox 98.9 F 90 20 121/67 99 04/14/19 02:23 04/14/19 02:23 04/14/19 02:23 04/14/19 02:04/14/19 02:23 - Labs 04/15/19 03:25 04/15/19 03:25 Diabetes panel 04/15/19 Range/Units 03:25 Sodium 136 (136-145) mEq/L Potassium 4.3 (3.5-5.1) mEq/L Chloride 110 H (98-107) mEq/L Carbon Dioxide 21 L (23-29) mEq/L BUN 18 (6-20) mg/dL Creatinine 0.68 (0.60-1.20) mg/dL Glucose 95 (70-105) mg/dL Calcium 8.3 L (8.6-10.3) mg/dL Calcium panel 04/15/19 Range/Units 03:25 Calcium 8.3 L (8.6-10.3) mg/dL Pituitary panel 04/15/19 Range/Units 03:25 Sodium 136 (136-145) mEq/L Potassium 4.3 (3.5-5.1) mEq/L Chloride 110 H (98-107) mEq/L Carbon Dioxide 21 L (23-29) mEq/L BUN 18 (6-20) mg/dL Creatinine 0.68 (0.60-1.20) mg/dL Glucose 95 (70-105) mg/dL Calcium 8.3 L (8.6-10.3) mg/dL Adrenal panel 04/15/19 Range/Units 03:25 Sodium 136 (136-145) mEq/L Potassium 4.3 (3.5-5.1) mEq/L Chloride 110 H (98-107) mEq/L Carbon Dioxide 21 L (23-29) mEq/L BUN 18 (6-20) mg/dL Creatinine 0.68 (0.60-1.20) mg/dL Glucose 95 (70-105) mg/dL Calcium 8.3 L (8.6-10.3) mg/dL
--- NOTE | 2019-04-15 09:49 | Internal Med Progress Note ---
Hospitalist Progress Note - Encounter Date of Encounter: 04/15/19 Time of Encounter: 09:44 - Subjective Interval History: Patient seen and examined in the room. Back and abdominal pain have resolved with treatment. Overnight, patient denies fever, chills, or night sweats. She reported absence of dysuria, urgency, or frequency. - Exam Vitals: Temp Pulse Resp BP Pulse Ox 98.6 F 78 15 94/60 96 04/15/19 08:07 04/15/19 08:07 04/15/19 08:07 04/15/19 08:07 04/15/19 08:07 Exam: PHYSICAL EXAMINATION: GENERAL APPEARANCE: The patient is alert, oriented and in no acute distress. HEENT: Head is normocephalic. The sinuses are nontender. Pupils are equal and reactive. The nares are patent. Oropharynx clear without lesions. NECK: Supple without lymphadenopathy. HEART: Regular rate and rhythm. LUNGS: No crackles or wheezes are heard. ABDOMEN: Soft, nontender, nondistended with good bowel sounds heard. Inguinal area is normal. EXTREMITIES: Without cyanosis, clubbing or edema. NEUROLOGICAL: Gross nonfocal. SKIN: Warm and dry without any rash. - Assessment and Plan (1) Pyelonephritis Current Visit: Yes Status: Suspected Assessment and Plan: Patient recently was hospitalized about 5 days ago, CT abdomen showed a 1.3 cm 1.0 cm renal calculi located on the left renal pelvis. A JJ stent was placed on the left ureteral at that time. Patient came back because of worsening left back pain as well as abdominal pain. Repeat CT abdomen/pelvis showed slightly worsening perirenal fat stranding, concerning for acute pyelonephritis. She was started on IV Rocephin, urine culture was obtained, the final report report showed no growth. Her symptoms have improved with IV antibiotics and narcotics. Will DC IV antibiotics. Urology following, appreciate help (2) Left nephrolithiasis Current Visit: Yes Status: Acute Assessment and Plan: Urology following, appreciate help. Continue pain control. (3) DVT prophylaxis Current Visit: No Status: Acute Assessment and Plan: Ambulating. - Time Spent with Patient Total time spent is greater than 50% in coordination of care (as documented) at patient's floor/unit and/or counseling patient: Greater than 35 minutes Plan of Care Discussed with: patient Internal Medicine: Result - Labs CBC & Chem 7: 04/15/19 03:25 04/15/19 03:25 Labs: Short CBC 04/15/19 Range/Units 03:25 WBC 8.4 D (4.3-11.1) K/mcL Hgb 12.9 D (11.5-15.4) g/dL Hct 39.8 (35.3-44.9) % Plt Count 221 (140-400) K/mcL Neutrophils # 5.1 (1.6-8.9) K/mcL BMP 04/15/19 03:25 Sodium 136 Potassium 4.3 Chloride 110 H Carbon Dioxide 21 L BUN 18 Creatinine 0.68 Glucose 95 Calcium 8.3 L - ABG Interpretation ABG results: PT/INR, D-dimer PT 12.0 Seconds (9.4-12.1) 04/14/19 04:59 Consult Discharge Plan - Plan Referrals: Amrik Echeverria Jr, MD [Primary Care Provider] - (Appointment has been requested.)
--- NOTE | 2019-04-15 13:18 | Discharge Summary ---
- NOTES TO OUTPATIENT PROVIDER Notes to Outpatient Provider: f/u with urology as scheduled. f/u with PCP within 2 weeks. Orders not resulted at time of discharge: Pending orders 04/14/19 04:57 Culture,Blood [BC] Stat Date of Encounter: 04/15/19 Time of Encounter: 13:16 - Discharge Diagnosis (1) Pyelonephritis Priority: Primary Status: Ruled-out (2) Left nephrolithiasis Priority: Primary Status: Acute (3) DVT prophylaxis Priority: Primary Status: Acute Hospital course: Hoa Carbajal is a 44-year-old woman who discharged from here 2 days ago after presenting with left flank pain and was found to have a large stone in her left renal pelvis with peripelvic fat stranding concerning for pyelonephritis. She was taken to the operating room and had a left double-J stent with plans for outpatient follow-up in 1-2 weeks for stent removal. She says she has been doing well after discharge however last night at around 11 PM she developed pain in her left lumbar region that was rapidly progressing in intensity and I will ultimately became 10 out of 10 in severity prompted her to seek medical attention. She has also had some chills but no fever. She notes that her urine is darker and feels pressure when she urinates. On arrival she has been hemodynamically stable with blood work revealed a significant elevation in her leukocyte count to 17.[address] scan shows slight progression of the left-sided hydronephrosis after stent placements with no change in the calculus. She was given some analgesics and was admitted for further care. Urine culture was obtained and has no growth on final report. IV antibiotics was discontinued. Urology was consulted, recommended to continue pain management and follow-up as outpatient. Patient is discharged home today, she w as instructed to continue drinking plenty of water, take pain medicine as needed, and a follow-up with urology within 1-2 weeks which already scheduled. Discharge discussed with: patient Time spent discussing smoking cessation with patient: more than 10 minutes - Time Spent with Patient Total time spent providing and/or coordinating discharge services: Time spent: Greater than 30 minutes - Discharge Medications Prescriptions: New OxyCODONE Immed Rel [Roxicodone 5 MG] 10 mg PO Q6H PRN 5 Days #20 tablet PRN Reason: Severe Pain Continued Ibuprofen [Motrin] 600 mg PO Q6HR PRN #60 tab PRN Reason: Pain Home Medications: Ibuprofen [Motrin] 600 mg PO Q6HR PRN #60 tab 04/11/19 [Rx] OxyCODONE Immed Rel [Roxicodone 5 MG] 10 mg PO Q6H PRN 5 Days #20 tablet 04/15/19 [Rx] Allergies/Adverse Reactions: Allergy/AdvReac Type Severity Reaction Status Date / Time No Known Allergies Allergy Verified 04/14/19 18:25 Date of admission: 04/14/19 04:44 Primary care physician: Amrik Echeverria Jr, MD Consults: 04/14/19 04:08 Consult to Urology [CONS] Stat Consulting Provider: [facility] Reason for Consult: Pyelonephritis, hydronephrosis after stent placement Time Notified: 04:08 Call Completed: No Anticipated date of discharge: 04/15/19 - Constitutional Vitals: Temp Pulse Resp BP Pulse Ox 98.6 F 78 15 94/60 96 04/15/19 08:07 04/15/19 08:07 04/15/19 08:07 04/15/19 08:07 04/15/19 08:07 General appearance: Present: A&O X 3 Exam: PHYSICAL EXAMINATION: GENERAL APPEARANCE: The patient is alert, oriented and in no acute distress. HEENT: Head is normocephalic. The sinuses are nontender. Pupils are equal and reactive. The nares are patent. Oropharynx clear without lesions. NECK: Supple without lymphadenopathy. HEART: Regular rate and rhythm. LUNGS: No crackles or wheezes are heard. ABDOMEN: Soft, nontender, nondistended with good bowel sounds heard. Inguinal area is normal. EXTREMITIES: Without cyanosis, clubbing or edema. NEUROLOGICAL: Gross nonfocal. SKIN: Warm and dry without any rash. - Patient Status Disposition: Home, Self-Care Condition: Fair Functional capacity at discharge: independent ambulation Overall status at discharge: patient is progressing back to baseline - Discharge Instructions Follow Up With: Amrik Echeverria Jr, MD [Primary Care Provider] - (Appointment has been requested.) Ishan John [Partnered Physician] - 04/21/19 1:30 pm - Diet and Activity Activity: increase activity as tolerated Diet: advance to your usual diet
== END 2019-04-15 15:45 | disposition home or self-care (01) ==
LOC: EMEROOARM 01:51 → 3BNU 01:51
PROVIDERS: ADMIT Internal Medicine; ATTEND Internal Medicine